=== PATIENT | female | born 1940 | race Caucasian/White ===

== ENCOUNTER 2017-09-17 16:06 | Emergency (ER) | payer MEDICARE, OTHER ==
[~2017-09-17] VITALS: Ht 170.2 cm; Wt 68.0 kg
[~2017-09-17 16:06] MED LIST: OLME20TA19 PO
[2017-09-17 16:35] VITALS: BP 129/94
[2017-09-17] MEDS ORDERED: IPRATROPIUM BROM 0.5 MG/2.5ML INH SOL NEB ONE (18:00)
[2017-09-17] MEDS ORDERED: KETOROLAC TROMETH 30 MG/ML 1ML VIAL IM ONE (18:00)
[2017-09-17] MEDS ORDERED: ALBUTEROL SULF 2.5 MG/0.5ML(0.5%) NEB SOLN NEB ONE (18:00)
== END 2017-09-17 18:30 | disposition home or self-care (01) ==
LOC: ER 16:15
DX: S40.011A Contusion of right shoulder, initial encounter (principal); E11.9 Type 2 diabetes mellitus without complications; F17.210 Nicotine dependence, cigarettes, uncomplicated; I10 Essential (primary) hypertension; Z88.2 Allergy status to sulfonamides; Z79.899 Other long term (current) drug therapy; Z90.49 Acquired absence of other specified parts of digestive tract; Z90.710 Acquired absence of both cervix and uterus; W18.39XA Other fall on same level, initial encounter; Y93.89 Activity, other specified; Y92.89 Other specified places as the place of occurrence of the external cause; Y99.8 Other external cause status
CPT/HCPCS: 73030; 94640; 96372; 99284; J1885

== ENCOUNTER 2017-09-25 00:01 | Emergency (ER) | payer MEDICARE, OTHER ==
[~2017-09-25] VITALS: Ht 170.2 cm; Wt 70.3 kg
[2017-09-25 01:15] LABS: Basophils # (auto) 0.1 uL; Eosinophils # (auto) 0.5 uL; Eosinophils % (auto) 8.2 % (0.0-7.0); Hematocrit 40.4 % (36.0-46.0); Hemoglobin 13.9 g/dL (12.2-16.2); Lymphocytes # (auto) 1.9 uL; Lymphocytes % (auto) 35.1 % (10.0-50.0); Mean Corpuscular Hemoglobin 31.1 pg (28.0-32.0); Mean Corpuscular Hgb Conc. 34.4 g/dL (32.0-36.0); Mean Corpuscular Volume 90.6 fL (80.0-100.0); Monocytes # (auto) 0.5 uL; Monocytes % (auto) 8.9 % (0.0-12.0); Neutrophils # (auto) 2.6 uL; Neutrophils % (auto) 46.8 % (37.0-80.0); Platelet Count (auto) 219 10^3/uL (140-450); Red Blood Cells 4.46 10^6/uL (4.0-5.20); Red Cell Distribution Width 13.5 % (11.8-14.3); White Blood Cell 5.5 10^3/uL (4.4-10.8)
[2017-09-25 01:22] LABS: INR 1.07 (0.9-1.15); Partial Thromboplastin Time 28.2 sec (23.78-33.04); Prothrombin Time 11.4 sec (9.27-12.13)
[2017-09-25 01:30] LABS: Alanine Aminotransferase 33 U/L (13-56); Albumin 3.4 g/dL (3.4-5.0); Anion Gap 8 (5-15); Aspartate Aminotransferase 25 U/L (15-37); BUN/Creatinine Ratio 11.9; Blood Urea Nitrogen 7 mg/dL (7-18); Calcium 7.8 mg/dL (8.5-10.1); Carbon Dioxide 24 mmol/L (21-32); Chloride 96 mmol/L (98-107); GFR African American 128 mL/min; GFR Non-African American 106 mL/min; Glucose 109 mg/dL (74-106); Magnesium 1.9 mg/dL (1.6-2.6); Potassium 4.1 mmol/L (3.5-5.1); Sodium 128 mmol/L (136-145)
[2017-09-25 01:34] LABS: Alkaline Phosphatase 82 U/L (45-117); Bilirubin, Total 0.4 mg/dL (0.2-1.0); Total Protein 6.6 g/dL (6.4-8.2)
[2017-09-25] MEDS ORDERED: ALPRAZolam 0.5 MG TAB PO ONE (03:00)
[2017-09-25] MEDS ORDERED: ALBUTEROL SULF 2.5 MG/0.5ML(0.5%) NEB SOLN NEB ONE ×3 (06:15→09:00)
[2017-09-25] MEDS ORDERED: IPRATROPIUM BROM 0.5 MG/2.5ML INH SOL NEB ONE ×3 (06:15→09:00)
[2017-09-25] MEDS ORDERED: SODIUM CHLORIDE 0.9% 1,000 ML IV ONE (07:14)
[2017-09-25] MEDS ORDERED: FUROSEMIDE 40 MG/4 ML VIAL IV ONE (07:15)
[2017-09-25] MEDS ORDERED: SPIRONOLACTONE 25 MG TAB PO ONE (07:15)
[2017-09-25] MEDS ORDERED: PROMETHAZINE W/CODEINE 5 ML ORAL SYRUP PO ONE (09:00)
[2017-09-25 09:55] VITALS: BP 128/59
== END 2017-09-25 10:01 | disposition home or self-care (01) ==
LOC: ER 00:02
DX: J44.1 Chronic obstructive pulmonary disease with (acute) exacerbation (principal); R60.9 Edema, unspecified; E87.1 Hypo-osmolality and hyponatremia; M25.572 Pain in left ankle and joints of left foot; M25.571 Pain in right ankle and joints of right foot; E11.9 Type 2 diabetes mellitus without complications; F17.210 Nicotine dependence, cigarettes, uncomplicated; I10 Essential (primary) hypertension; Z90.710 Acquired absence of both cervix and uterus; Z90.49 Acquired absence of other specified parts of digestive tract; Z88.2 Allergy status to sulfonamides
CPT/HCPCS: 36415; 71045; 80053; 83735; 83880; 84484; 85025; 85610; 85730; 93005; 94640; 96374; 99285; J1940; J7030

== ENCOUNTER 2019-07-31 10:33 | Inpatient (IN) | payer MEDICARE ==
[~2019-07-31] VITALS: Ht 170.2 cm; Wt 69.1 kg
[~2019-07-31 10:33] MED LIST changes: +BUDE0.253 IN; +FORMPOW9 IN; +LOSA25TA38 PO; -OLME20TA19 PO; +OLME20TA53 PO; +TRIATAB3 PO; +[UNRECOGNIZED DRUG - CODE] IN
[2019-07-31 11:22] LABS: Basophils # (auto) 0.1 10 ^3/uL (0-0.2); Basophils % (auto) 0.3 % (0.0-2.0); Eosinophils # (auto) 0 10 ^3/uL (0-0.8); Eosinophils % (auto) 0.1 % (0.0-7.0); Hematocrit 52.1 % (36.0-46.0); Hemoglobin 17.3 g/dL (12.2-16.2); Lymphocytes # (auto) 1.4 10 ^3/uL (0.4-5.4); Mean Corpuscular Hgb Conc. 33.2 g/dL (32.0-36.0); Mean Corpuscular Volume 90.3 fL (80.0-100.0); Monocytes # (auto) 1.3 10 ^3/uL (0-1.3); Monocytes % (auto) 5.3 % (0.0-12.0); Neutrophils # (auto) 20.8 10 ^3/uL (1.6-8.6); Neutrophils % (auto) 88.3 % (37.0-80.0); Platelet Count (auto) 364 10^3/uL (140-450); Red Blood Cells 5.76 10^6/uL (4.0-5.20); Red Cell Distribution Width 13.7 % (11.8-14.3); White Blood Cell 23.6 10^3/uL (4.4-10.8)
[2019-07-31 11:37] LABS: Anion Gap 12 (5-15); Blood Urea Nitrogen 13 mg/dL (7-18); Calcium 9.4 mg/dL (8.5-10.1); Carbon Dioxide 24 mmol/L (21-32); Chloride 88 mmol/L (98-107); Glucose 177 mg/dL (74-106); Lipase 39 U/L (73-393); Magnesium 2.3 mg/dL (1.6-2.6); Potassium 4.2 mmol/L (3.5-5.1); Sodium 124 mmol/L (136-145)
[2019-07-31 11:42] LABS: Alanine Aminotransferase 20 U/L (13-56); Alkaline Phosphatase 86 U/L (45-117); Aspartate Aminotransferase 24 U/L (15-37); Bilirubin, Total 1.5 mg/dL (0.2-1.0); GFR African American 75 mL/min; GFR Non-African American 62 mL/min; Total Protein 8.2 g/dL (6.4-8.2)
[2019-07-31] MEDS ORDERED: SODIUM CHLORIDE 0.9% 1,000 ML IV ONE (11:45)
[2019-07-31] MEDS ORDERED: ONDANSETRON HCL 4 MG/2 ML VIAL IV ONE (11:45)
[2019-07-31 12:29] LABS: INR 1.11 (0.9-1.15); Partial Thromboplastin Time 27.8 sec (23.64-32.05)
[2019-07-31] MEDS ORDERED: metroNIDAZOLE 500MG/100ML 100 ML IV ONE (13:15)
[2019-07-31] MEDS ORDERED: DEXTROSE (50%) 50ML SYRG IV PRN (13:45)
[2019-07-31] MEDS ORDERED: NITROGLYCERIN 0.4 MG SL TAB SL PRN (13:45)
[2019-07-31] MEDS ORDERED: PIPERACILLIN-TAZOB 3.375GM 100 ML IV ONE (13:45)
[2019-07-31] MEDS ORDERED: MORPHINE SULF INJ 2 MG/ML SYRINGE 1ML IV PRN ×2 (13:45)
[2019-07-31] MEDS ORDERED: ALBUTEROL SULF 2.5 MG/0.5ML(0.5%) NEB SOLN NEB PRN (13:45)
[2019-07-31] MEDS ORDERED: BENZOCAINE (DENTAL)20% 1 SPR SPRAY MT ONE ×2 (14:00→14:15)
[2019-07-31] MEDS: FAMOTIDINE (10MG/ML) 2ML VL IV SCH (14:06)
[2019-07-31] MEDS: SODIUM CHLORIDE 0.9% 1,000 ML IV SCH (14:32)
[2019-07-31 15:07] LABS: CRP High Sensitivity 1.12 mg/dL (< 0.3)
[2019-07-31] MEDS ORDERED: GASTROGRAFIN 120 ML SOL ONE (16:23)
[2019-07-31] MEDS: CLINDAMYCIN 600MG IV 50 ML IV SCH ×2 (16:31→20:12)
[2019-07-31 17:28] LABS: Urine Bacteria FEW /hpf (None Seen); Urine Blood Negative /uL (Negative); Urine Hyaline Cast FEW /lpf (0 - 2); Urine Specific Gravity 1.011 (1.001-1.035); Urine WBC 2 /hpf (0 - 5)
[2019-07-31 17:50] LABS: Alcohol, Urine < 3.0 mg/dL (0-5); Amphetamine Screen, Urine NEGATIVE (NEGATIVE); Barbiturate Scree,Urine NEGATIVE (NEGATIVE); Benzodiazephine Screen, Urine NEGATIVE (NEGATIVE); Cannabinoid Screen, Urine NEGATIVE (NEGATIVE); Cocaine Screen, Urine NEGATIVE (NEGATIVE); Opiate Scree,Urine NEGATIVE (NEGATIVE); Phencyclidine Screen, Urine NEGATIVE (NEGATIVE)
[2019-07-31] MEDS: ACCU-CHEK COMFORT CURVE STRIP VI SCH (18:00)
[2019-07-31] MEDS: PIPERACILLIN-TAZOB 3.375GM 100 ML IV SCH ×2 (19:01→23:12)
--- NOTE | 2019-07-31 19:04 | NUR ---
UNABLE TO PERFORM MED REC UPON PERFORMING ADMISSION, PT UNABLE TO STATE MEDICATIONS SHE TAKES AT HOME AND PT HAS NO LIST WITH HER. ASKED IF SHE COULD HAVE FAMILY CALL IN WITH MED LIST. PT STATED WILL HAVE FAMILY CALL. INFORMED PRIMARY RN.
[2019-07-31] MEDS: ALBUTEROL SULF 2.5 MG/0.5ML(0.5%) NEB SOLN NEB SCH (19:06)
[2019-07-31] MEDS: IPRATROPIUM BROM 0.5 MG/2.5ML INH SOL NEB SCH (19:06)
[2019-07-31] MEDS: ONDANSETRON HCL 4 MG/2 ML VIAL IV PRN (20:12)
[2019-07-31 20:40] VITALS: BP 172/77
--- NOTE | 2019-07-31 20:41 | NUR ---
PATIENT BP 172/77 HR 101 PATIENT IS NPO FOR PARTIAL SBO, REGULARLY TAKE BENICAR 20MG DAILY, AND LOSARTAN 25MG PO DAILY. PATIENT WAS GIVEN ZOFRAN BUT STILL STATES SHE IS NAUSEATED. PAGED HOSPITALIST FOR ORDERS.
[2019-07-31 22:00] VITALS: BP 167/75
[2019-07-31 22:19] VITALS: BP 172/77
[2019-07-31] MEDS: hydrALAZINE HCL 20 MG/ML VL IV PRN (23:11)
[2019-07-31] MEDS: MORPHINE SULF INJ 2 MG/ML SYRINGE 1ML IV PRN (23:58)
[2019-08-01] MEDS: FAMOTIDINE (10MG/ML) 2ML VL IV SCH ×2 (00:09→14:46)
[2019-08-01] MEDS: ONDANSETRON HCL 4 MG/2 ML VIAL IV PRN ×2 (00:10→03:50)
[2019-08-01 00:32] VITALS: BP 132/74
[2019-08-01] MEDS: IPRATROPIUM BROM 0.5 MG/2.5ML INH SOL NEB SCH ×4 (00:33→18:29)
[2019-08-01] MEDS: ALBUTEROL SULF 2.5 MG/0.5ML(0.5%) NEB SOLN NEB SCH ×4 (00:33→18:29)
[2019-08-01] MEDS: MORPHINE SULF INJ 2 MG/ML SYRINGE 1ML IV PRN (03:50)
[2019-08-01 05:00] VITALS: BP 113/65
[2019-08-01] MEDS: CLINDAMYCIN 600MG IV 50 ML IV SCH (05:31)
[2019-08-01] MEDS: SODIUM CHLORIDE 0.9% 1,000 ML IV SCH ×3 (05:31→21:40)
[2019-08-01] MEDS: PIPERACILLIN-TAZOB 3.375GM 100 ML IV SCH ×3 (05:31→18:35)
[2019-08-01] MEDS ORDERED: hydrALAZINE HCL 20 MG/ML VL IV PRN (06:00)
--- NOTE | 2019-08-01 06:01 | NUR ---
BS THIS AM 211 AND PATIENT CURRENTLY NPO WITH NS [phone].
[2019-08-01] MEDS: ACCU-CHEK COMFORT CURVE STRIP VI SCH ×3 (06:11→12:13)
[2019-08-01 06:36] LABS: Basophils # (auto) 0 10 ^3/uL (0-0.2); Basophils % (auto) 0.1 % (0.0-2.0); Eosinophils # (auto) 0 10 ^3/uL (0-0.8); Hematocrit 48.8 % (36.0-46.0); Hemoglobin 16.3 g/dL (12.2-16.2); Lymphocytes # (auto) 0.8 10 ^3/uL (0.4-5.4); Mean Corpuscular Hemoglobin 30.5 pg (28.0-32.0); Mean Corpuscular Hgb Conc. 33.4 g/dL (32.0-36.0); Mean Corpuscular Volume 91.1 fL (80.0-100.0); Monocytes # (auto) 0.9 10 ^3/uL (0-1.3); Monocytes % (auto) 5.4 % (0.0-12.0); Neutrophils # (auto) 15.1 10 ^3/uL (1.6-8.6); Neutrophils % (auto) 89.5 % (37.0-80.0); Nucleated Red Blood Cells % 0.1 %; Platelet Count (auto) 322 10^3/uL (140-450); Red Blood Cells 5.35 10^6/uL (4.0-5.20); Red Cell Distribution Width 14.2 % (11.8-14.3); White Blood Cell 16.8 10^3/uL (4.4-10.8)
[2019-08-01 06:57] LABS: Albumin 3.6 g/dL (3.4-5.0); BUN/Creatinine Ratio 21.6; Calcium 8.9 mg/dL (8.5-10.1); Potassium 3.4 mmol/L (3.5-5.1)
[2019-08-01 07:00] LABS: Bilirubin, Total 1.1 mg/dL (0.2-1.0); Total Protein 7.1 g/dL (6.4-8.2)
--- NOTE | 2019-08-01 07:50 | NUR ---
Small bowel series complete patient connected to suction per md orders. Patient now has NG out put 900 dark green canister changed.
[2019-08-01 09:00] VITALS: BP 119/73
--- NOTE | 2019-08-01 12:10 | NUR ---
PATIENT HAS 1500 NG TOTAL OUT PUT AT THIS TIME DOCTOR ANNE INFORMED. MD ALSO INFORMED OF PATIENT 3.4 POTASSIUM. NEW ORDERS RECEIVED SEE EMR FOR MD ORDERS.
[2019-08-01] MEDS ORDERED: VANCOMYCIN PER PHARMACY 0 MG IV SCH (12:15)
[2019-08-01] MEDS ORDERED: VANCOMYCIN 1GM/250ML 250 ML IV ONE (12:15)
[2019-08-01 12:53] VITALS: BP 118/60
[2019-08-01 17:00] VITALS: BP 123/74
--- NOTE | 2019-08-01 17:10 | NUR ---
at Bedside Doctor Yamil at bedside. informed of NG suction total output today 2100. Per Yamil he will reassess patient tomorrow to see if she will need surgical intervention.
[2019-08-01] MEDS: POTASSIUM CHL 20MEQ/100ML 100 ML IV SCH ×2 (17:48→21:40)
--- NOTE | 2019-08-01 19:00 | NUR ---
TOTAL NG OUT PUT WAS 2450 OF DARK GREEN COLOR.
[2019-08-01 22:00] VITALS: BP 140/70
[2019-08-02] MEDS: ALBUTEROL SULF 2.5 MG/0.5ML(0.5%) NEB SOLN NEB SCH ×4 (00:32→18:37)
[2019-08-02] MEDS: IPRATROPIUM BROM 0.5 MG/2.5ML INH SOL NEB SCH ×4 (00:32→18:37)
[2019-08-02] MEDS: PIPERACILLIN-TAZOB 3.375GM 100 ML IV SCH ×5 (00:43→23:46)
[2019-08-02 05:00] VITALS: BP 145/71
[2019-08-02] MEDS: FAMOTIDINE (10MG/ML) 2ML VL IV SCH ×3 (06:31→23:46)
[2019-08-02] MEDS: SODIUM CHLORIDE 0.9% 1,000 ML IV SCH ×2 (06:32→15:38)
[2019-08-02 06:53] LABS: Basophils # (auto) 0 10 ^3/uL (0-0.2); Basophils % (auto) 0.1 % (0.0-2.0); Eosinophils # (auto) 0 10 ^3/uL (0-0.8); Hematocrit 46.5 % (36.0-46.0); Hemoglobin 15.7 g/dL (12.2-16.2); Lymphocytes # (auto) 1.7 10 ^3/uL (0.4-5.4); Lymphocytes % (auto) 10.1 % (10.0-50.0); Mean Corpuscular Hemoglobin 30.7 pg (28.0-32.0); Mean Corpuscular Hgb Conc. 33.8 g/dL (32.0-36.0); Mean Corpuscular Volume 90.9 fL (80.0-100.0); Monocytes # (auto) 1.2 10 ^3/uL (0-1.3); Monocytes % (auto) 7.2 % (0.0-12.0); Neutrophils # (auto) 13.6 10 ^3/uL (1.6-8.6); Neutrophils % (auto) 82.6 % (37.0-80.0); Nucleated Red Blood Cells % 0.1 %; Platelet Count (auto) 299 10^3/uL (140-450); Red Blood Cells 5.11 10^6/uL (4.0-5.20); White Blood Cell 16.5 10^3/uL (4.4-10.8)
[2019-08-02 07:09] LABS: Potassium 3.6 mmol/L (3.5-5.1)
[2019-08-02 07:11] LABS: BUN/Creatinine Ratio 32.5; Calcium 8.7 mg/dL (8.5-10.1)
[2019-08-02 07:13] LABS: Albumin 3.2 g/dL (3.4-5.0); Bilirubin, Total 0.9 mg/dL (0.2-1.0); Total Protein 6.8 g/dL (6.4-8.2)
--- NOTE | 2019-08-02 08:45 | NUR ---
Banda rounding. New orders received see emr for orders.
[2019-08-02 09:00] VITALS: BP 149/71
[2019-08-02] MEDS: SOD CHL 0.9%/ KCL 40MEQ 1,000 ML IV SCH ×2 (10:31→18:54)
[2019-08-02] MEDS: VANCOMYCIN 1GM/250ML 250 ML IV SCH (12:00)
--- NOTE | 2019-08-02 12:35 | NUR ---
DOCTOR GASCA AT BEDSIDE, PER MD HE WILL REASSESS PATIENT AGAIN TOMORROW FOR POSSIBLE SURGERY.
[2019-08-02 13:00] VITALS: BP 149/55
--- NOTE | 2019-08-02 15:04 | NUR ---
Family call Received call from Saskia patient daughter per Saskia patient is seen by [facility] [phone] nurses name is Coral. Per saskia "my mother has had a lot of abdominal surgeries when she was younger and has abdominal issue since 2009". Per daughter saskia she would like if doctor Yamil could call her tomorrow to discuss poc [phone].
[2019-08-02 17:00] VITALS: BP 160/98
--- NOTE | 2019-08-02 18:35 | NUR ---
NG suction out put this shift 450ml dark green in color.
[2019-08-02] MEDS: hydrALAZINE HCL 20 MG/ML VL IV PRN (18:51)
--- NOTE | 2019-08-02 19:10 | NUR ---
PATIENT BLOOD PRESSURE WAS 159/73 BLOOD PRESSURE PRN GIVEN (SEE EMAR) BLOOD PRESSURE REASSESSED 132/64
--- NOTE | 2019-08-02 19:30 | NUR ---
Opening Shift Note Assumed care of patient, awake and alert. No S/S of distress/SOB or pain. Instructed on POC and to callfor assist PRN, will continue to monitor for changes Q1hr and PRN. Fall and safety precautions in place. Call light within reach. NGT in right nare, marked at 58cm at nare, and connected to LIS. Suction canister changed, will continue to monitor gastric output.
[2019-08-02 22:00] VITALS: BP 130/68
[2019-08-03] MEDS: ALBUTEROL SULF 2.5 MG/0.5ML(0.5%) NEB SOLN NEB SCH ×4 (00:17→19:08)
[2019-08-03] MEDS: IPRATROPIUM BROM 0.5 MG/2.5ML INH SOL NEB SCH ×4 (00:17→19:08)
[2019-08-03] MEDS: SODIUM CHLORIDE 0.9% 1,000 ML IV SCH ×3 (01:34→21:34)
[2019-08-03 04:59] VITALS: BP 153/72
[2019-08-03] MEDS: PIPERACILLIN-TAZOB 3.375GM 100 ML IV SCH ×4 (05:31→23:22)
[2019-08-03] MEDS: SOD CHL 0.9%/ KCL 40MEQ 1,000 ML IV SCH ×3 (05:31→23:23)
--- NOTE | 2019-08-03 06:00 | NUR ---
NG DRAINAGE Measured 200ml of drainage in suction canister from NG tube (see intake and output). Canister marked, will inform day shift RN to continue monitoring output
[2019-08-03 06:26] LABS: Basophils # (auto) 0 10 ^3/uL (0-0.2); Basophils % (auto) 0.2 % (0.0-2.0); Eosinophils # (auto) 0 10 ^3/uL (0-0.8); Eosinophils % (auto) 0.1 % (0.0-7.0); Hematocrit 44.5 % (36.0-46.0); Hemoglobin 14.7 g/dL (12.2-16.2); Lymphocytes # (auto) 1.1 10 ^3/uL (0.4-5.4); Lymphocytes % (auto) 8.4 % (10.0-50.0); Mean Corpuscular Hemoglobin 30.3 pg (28.0-32.0); Mean Corpuscular Hgb Conc. 33.1 g/dL (32.0-36.0); Mean Corpuscular Volume 91.6 fL (80.0-100.0); Monocytes # (auto) 1.1 10 ^3/uL (0-1.3); Monocytes % (auto) 8.3 % (0.0-12.0); Neutrophils # (auto) 10.5 10 ^3/uL (1.6-8.6); Platelet Count (auto) 218 10^3/uL (140-450); Red Blood Cells 4.85 10^6/uL (4.0-5.20); White Blood Cell 12.7 10^3/uL (4.4-10.8)
[2019-08-03 06:53] LABS: Albumin 3.2 g/dL (3.4-5.0); Calcium 8.4 mg/dL (8.5-10.1); Potassium 4.4 mmol/L (3.5-5.1)
[2019-08-03 06:58] LABS: BUN/Creatinine Ratio 33.3; Bilirubin, Total 1.1 mg/dL (0.2-1.0); Total Protein 6.4 g/dL (6.4-8.2)
[2019-08-03 09:00] VITALS: BP 160/73
[2019-08-03] MEDS: VANCOMYCIN 1GM/250ML 250 ML IV SCH (11:43)
[2019-08-03 13:00] VITALS: BP 146/75
[2019-08-03] MEDS ORDERED: METOPROLOL TARTRATE 1MG/1ML-5ML VIAL IV ONE ×2 (13:00→13:15)
--- NOTE | 2019-08-03 13:04 | NUR ---
RECEIEVED CALL FROM TELE MONITORS, THEY REPORT PT IS TACHYCARDIC HR 140'S AND PT IS HAVING PVC'S. TOOK STAT ECG. ECG READS SUPRAVENTRICULAR TACHYCARDIA WITH MULTIPLE PVC'S, HR 147. VITALS: RR 18, HR 150, 02 96 2 L NC, BP 150/99, 98.6.PT REPORTS NO SYMPTOMS, NO SOB OR DIAPHORESIS NOTED. SHOWED DR PURDY ECG AND REPORTED HR. AWARE, NEW ORDERS FOR METOPROLOL 5 MG AND 500 ML BOLUS.
[2019-08-03] MEDS ORDERED: METOPROLOL TARTRATE 1MG/1ML-5ML VIAL IV PRN (13:15)
[2019-08-03] MEDS ORDERED: SODIUM CHLORIDE 0.9% 500 ML IV ONE ×2 (13:15)
[2019-08-03] MEDS: FAMOTIDINE (10MG/ML) 2ML VL IV SCH ×2 (13:41→23:23)
--- NOTE | 2019-08-03 14:00 | NUR ---
Pt request-Dr. Lobo to call dtr tomorrow. Patient's daughter wanted Dr. Lobo to call her for an update. MD was talking to the patient and she said she didn't want her daughter called. She said her daughter has multiple personalities and would get worked up over it and worry. She said she would think about it and that the doctor could call her daughter tomorrow after the results of the gastrografin were back and he had more information and a plan for moving forward. Dr. Lobo suggested the patient talk to her daughter about the situation and then he could talk with her tomorrow if she has any questions.
--- NOTE | 2019-08-03 15:01 | NUR ---
Nutrition Assessment Notes Please refer to link for full assessment notes. Est Energy needs: 6719-9996 kcals (20-23 kcal/kgBW) Est Protein needs: 64-71 gms/day (1.0-1.1 gm/kgBW) Will continue to monitor and reassess prn. Addendum: 08/03/19 at [address] Amended: Links added.
--- NOTE | 2019-08-03 15:17 | NUR ---
GASTRO WITH SMALL BOWEL FOLLOW THROUGH PATIENT TAKEN DOWN FOR GASTROGRAFIN SMALL BOWEL FOLLOW THROUGH. NO BM NOTED YET.
[2019-08-03] MEDS ORDERED: GASTROGRAFIN 120 ML SOL ONE (15:18)
[2019-08-03 17:00] VITALS: BP 143/75
--- NOTE | 2019-08-03 19:30 | NUR ---
Opening Shift Note Assumed care of patient, awake and alert. No S/S of distress/SOB or pain. Instructed on POC and to callfor assist PRN, will continue to monitor for changes Q1hr and PRN. Fall and safety precautions in place. Call light within reach. NGT in right nare, marked at 58cm at nare, and not connected to LIS at this time. Per day shift RN report, radiology to continue small bowel follow through. Attempted to call radiology department, but no answer. Will try again later. Suction canister changed. Will continue to monitor
[2019-08-03] MEDS: ONDANSETRON HCL 4 MG/2 ML VIAL IV PRN (19:42)
--- NOTE | 2019-08-03 19:45 | NUR ---
RADIOLOGY Attempted to call radiology department to continue with small bowel follow through, but no answer. Patient still not connected to LIS. Will try again later.
--- NOTE | 2019-08-03 20:00 | NUR ---
RADIOLOGY Attempted to call radiology department to continue with small bowel follow through, but no answer. Patient still not connected to LIS. Will try again later.
--- NOTE | 2019-08-03 20:15 | NUR ---
RADIOLOGY Attempted to call radiology department to continue with small bowel follow through, but no answer. Patient still not connected to LIS. Will try again later.
[2019-08-03 20:24] VITALS: BP 143/75
--- NOTE | 2019-08-03 20:30 | NUR ---
RADIOLOGY Attempted to call radiology department to continue with small bowel follow through, but no answer. Patient still not connected to LIS. Will try again later.
--- NOTE | 2019-08-03 20:45 | NUR ---
RADIOLOGY Attempted to call radiology department to continue with small bowel follow through, but no answer. Patient still not connected to LIS. Will try again later.
--- NOTE | 2019-08-03 21:00 | NUR ---
RADIOLOGY Attempted to call radiology department to continue with small bowel follow through, but no answer. Patient still not connected to LIS. Will try again later.
--- NOTE | 2019-08-03 21:15 | NUR ---
RADIOLOGY Attempted to call radiology department to continue with small bowel follow through, but no answer. Patient still not connected to LIS. Will try again later.
--- NOTE | 2019-08-03 21:40 | NUR ---
RADIOLOGY Spoke with sheila mendez, informed him patient has been disconnected from LIS because per day shift RN report, small bowel xray has not been completed. contract technical writer stated xray was completed and ok to connect patient to LIS. contract technical writer also stated to put order for KUB tomorrow 08/03 at 0800. Will confirm with incubator operator
[2019-08-03] MEDS: LABETALOL HCL 5 MG/ML 4ML SYRINGE IV PRN (21:50)
[2019-08-03 22:00] VITALS: BP 158/82
--- NOTE | 2019-08-03 22:05 | NUR ---
DIGITAL LIBRARIAN Confirmed with insulation cupola charger regarding veterinary technician's recommendation for KUB. Per insulation cupola charger, ok to put in order per protocol. Will input
--- NOTE | 2019-08-03 23:00 | NUR ---
NG DRAINAGE Patient put out 1000ml of green gastric drainage via NGT (see intake and output). Canister changed. Will continue to monitor NG drainage
[2019-08-03] MEDS: hydrALAZINE HCL 20 MG/ML VL IV PRN (23:22)
[2019-08-04 00:22] VITALS: BP 147/64
[2019-08-04] MEDS: IPRATROPIUM BROM 0.5 MG/2.5ML INH SOL NEB SCH ×5 (00:54→23:51)
[2019-08-04] MEDS: ALBUTEROL SULF 2.5 MG/0.5ML(0.5%) NEB SOLN NEB SCH ×5 (00:54→23:51)
--- NOTE | 2019-08-04 03:00 | NUR ---
NG DRAINAGE Patient put out 1000ml of green gastric drainage via NGT (see intake and output). Canister changed. Will continue to monitor NG drainage
[2019-08-04 05:00] VITALS: BP 129/55
[2019-08-04] MEDS: PIPERACILLIN-TAZOB 3.375GM 100 ML IV SCH ×4 (05:22→23:41)
--- NOTE | 2019-08-04 06:00 | NUR ---
NG DRAINAGE Patient put out 400ml of green gastric drainage via NGT (see intake and output). Canister marked at 400ml line. Will inform day shift RN
[2019-08-04 06:47] LABS: Basophils # (auto) 0 10 ^3/uL (0-0.2); Basophils % (auto) 0.1 % (0.0-2.0); Eosinophils # (auto) 0 10 ^3/uL (0-0.8); Eosinophils % (auto) 0.2 % (0.0-7.0); Hematocrit 47.4 % (36.0-46.0); Hemoglobin 15.8 g/dL (12.2-16.2); Lymphocytes # (auto) 1.3 10 ^3/uL (0.4-5.4); Lymphocytes % (auto) 10.6 % (10.0-50.0); Mean Corpuscular Hemoglobin 30.7 pg (28.0-32.0); Mean Corpuscular Hgb Conc. 33.3 g/dL (32.0-36.0); Mean Corpuscular Volume 92.2 fL (80.0-100.0); Monocytes # (auto) 1.3 10 ^3/uL (0-1.3); Monocytes % (auto) 10.5 % (0.0-12.0); Neutrophils # (auto) 9.7 10 ^3/uL (1.6-8.6); Neutrophils % (auto) 78.6 % (37.0-80.0); Platelet Count (auto) 238 10^3/uL (140-450); Red Blood Cells 5.14 10^6/uL (4.0-5.20); Red Cell Distribution Width 14.2 % (11.8-14.3); White Blood Cell 12.4 10^3/uL (4.4-10.8)
[2019-08-04 07:03] LABS: Potassium 4.5 mmol/L (3.5-5.1)
[2019-08-04 07:11] LABS: Albumin 3.3 g/dL (3.4-5.0); BUN/Creatinine Ratio 28.3; Bilirubin, Total 0.9 mg/dL (0.2-1.0); Calcium 9.2 mg/dL (8.5-10.1)
--- NOTE | 2019-08-04 07:30 | NUR ---
ROUNDS PT RESTING IN BED AWAKE A&O WITH NO C/O PAIN. NG TUBE TO RIGHT NARE ON LIS, DRAINING DARK GREEN LIQUID. BED IN LOW POSITION, CALL LIGHT IN REACH, NO CURRENT S/S OF DISTRESS OR REQUESTS. WILL CONTINUE TO MONITOR.
[2019-08-04] MEDS: SODIUM CHLORIDE 0.9% 1,000 ML IV SCH ×2 (07:34→17:34)
[2019-08-04 09:00] VITALS: BP 138/74
--- NOTE | 2019-08-04 10:39 | NUR ---
DR Darron GASCA CALLED REQUESTED UPDATE ON SMALL BOWEL REPORT. REPORT NOT AVAILABLE, WILL NOTIFY RADIOLOGY TO SEE IF REPORT CAN BE POPULATED
--- NOTE | 2019-08-04 10:46 | NUR ---
Pt sleeping and unable to answer phone for IM. Contacted daughter Saskia and explained IM process. saskia verbalized understanding of information.
[2019-08-04] MEDS: SOD CHL 0.9%/ KCL 40MEQ 1,000 ML IV SCH ×2 (11:00→22:26)
--- NOTE | 2019-08-04 11:57 | NUR ---
SUCTION CANISTER FULL AND REPLACED 500 ML DARK GREEN LIQUID OUT SINCE 0600
[2019-08-04] MEDS: VANCOMYCIN 1GM/250ML 250 ML IV SCH (12:31)
[2019-08-04] MEDS: FAMOTIDINE (10MG/ML) 2ML VL IV SCH ×2 (12:31→23:41)
[2019-08-04 13:00] VITALS: BP 130/54
--- NOTE | 2019-08-04 16:56 | NUR ---
CONSENTS SIGNED AND PLACED IN CHART
[2019-08-04 17:00] VITALS: BP 148/82
[2019-08-04 22:00] VITALS: BP 148/79
[2019-08-05] VITALS (44 sets, daily range): BP systolic 75–169; BP diastolic 29–95
[2019-08-05] MEDS: PIPERACILLIN-TAZOB 3.375GM 100 ML IV SCH ×3 (05:28→18:26)
--- NOTE | 2019-08-05 06:00 | NUR ---
CHG Patient cleaned with CHG wipes, full linen change done, and gown changed. Patient repositioned in bed for comfort, tolerated well. Will continue to monitor
--- NOTE | 2019-08-05 06:00 | NUR ---
TEMP Patient's current temp; 99.7F oral. Cooling measures applied. Will recheck approximately 1 hour
[2019-08-05 06:19] LABS: Basophils # (auto) 0.1 10 ^3/uL (0-0.2); Basophils % (auto) 0.5 % (0.0-2.0); Eosinophils # (auto) 0.2 10 ^3/uL (0-0.8); Eosinophils % (auto) 1.4 % (0.0-7.0); Hematocrit 46.4 % (36.0-46.0); Hemoglobin 15.4 g/dL (12.2-16.2); Lymphocytes # (auto) 2.1 10 ^3/uL (0.4-5.4); Mean Corpuscular Hemoglobin 31.1 pg (28.0-32.0); Mean Corpuscular Hgb Conc. 33.3 g/dL (32.0-36.0); Mean Corpuscular Volume 93.3 fL (80.0-100.0); Monocytes # (auto) 1.1 10 ^3/uL (0-1.3); Monocytes % (auto) 8.8 % (0.0-12.0); Neutrophils # (auto) 9.5 10 ^3/uL (1.6-8.6); Neutrophils % (auto) 73.3 % (37.0-80.0); Platelet Count (auto) 226 10^3/uL (140-450); Red Blood Cells 4.97 10^6/uL (4.0-5.20); Red Cell Distribution Width 14.1 % (11.8-14.3); White Blood Cell 12.9 10^3/uL (4.4-10.8)
[2019-08-05 06:38] LABS: Albumin 3.2 g/dL (3.4-5.0); Calcium 8.8 mg/dL (8.5-10.1); Potassium 4.6 mmol/L (3.5-5.1)
[2019-08-05 06:41] LABS: BUN/Creatinine Ratio 31.3
[2019-08-05] MEDS: SOD CHL 0.9%/ KCL 40MEQ 1,000 ML IV SCH ×2 (07:00→16:04)
[2019-08-05] MEDS: ALBUTEROL SULF 2.5 MG/0.5ML(0.5%) NEB SOLN NEB SCH ×3 (07:22→22:00)
[2019-08-05] MEDS: IPRATROPIUM BROM 0.5 MG/2.5ML INH SOL NEB SCH ×3 (07:22→22:00)
--- NOTE | 2019-08-05 07:35 | NUR ---
Opening shift note: Assumed care of patient from NOC RN Griselda. Patient is AOx4, so signs and symptoms of distress, shortness of breath or pain noted at this time. Bed is in lowest locked position, side rails up x2, and call light within reach. NG tube to right nare in place, tube marked at 58cm, it is patent and draining. Updated patient on plan of care, and patient verbalized understanding. I will continue to monitor Q1hr and PRN.
[2019-08-05] MEDS ORDERED: fentaNYL CITRATE 100 MCG/2 ML VL ONE (11:07)
[2019-08-05] MEDS ORDERED: MIDAZOLAM HCL 1MG/1ML-2 ML VIAL ONE ×2 (11:07→14:16)
[2019-08-05] MEDS ORDERED: SODIUM CHLORIDE LOCK 10 ML ONE (11:08)
[2019-08-05] MEDS ORDERED: MORPHINE SULFATE INJECTION 1 ML ONE ×2 (11:08→13:55)
[2019-08-05] MEDS ORDERED: ROCURONIUM 10MG/ML 10ML VIAL IV ONE ×2 (11:08→13:46)
[2019-08-05] MEDS ORDERED: PROPOFOL 10 MG/ML 20 ML IV ONE (11:08)
[2019-08-05] MEDS ORDERED: ONDANSETRON HCL 4 MG/2 ML VIAL ONE (11:08)
[2019-08-05] MEDS: hydrALAZINE HCL 20 MG/ML VL IV PRN (11:18)
[2019-08-05] MEDS: VANCOMYCIN 1GM/250ML 250 ML IV SCH (12:00)
--- NOTE | 2019-08-05 12:00 | NUR ---
Patient off unit: Patient taken to Pre-op. Report given to ROSA M Bundy.
--- NOTE | 2019-08-05 12:09 | NUR ---
Nutrition Followup Notes WT: 60.8 kg Pt was off the floor for procedure when rounded this am. per records pt with SBO on KUB and to have sx for same today. pt continues to be NPO Est Energy needs: 4300-1809 kcals (20-23 kcal/kgBW), Est Protein needs: 64-71 gms/day (1.0-1.1 gm/kgBW). Will continue to monitor and reassess prn. LABS: BUN 31 H, GLU 113 H, ALB 3.3 L. GI: pt had 1 BM yesterday per RN doc BS:skin score 16 mod risk PES: Problem Altered nutrition related lab values r.t current chronic medical condition aeb hyperglycemia, mild hypoalbuminemia Increased nutrient needs r.t current medical condition aeb pt`s NPO Comments 1) Continue to closely monitor pt NPO status. Consider alternate nutrition support if pt NPO > 48 hrs. 2) Gradually advance pt to oral 2gNa diet when medically feasible and as tolerated. 3) Continue current plan of care
--- NOTE | 2019-08-05 12:27 | NUR ---
Respiratory note: UNABLE TO ADMINISTER MEDNEB TX DUE TO PT BEING AT A PROCEDURE. RN AWARE.
--- NOTE | 2019-08-05 12:41 | NUR ---
patient off unit for surgery. Addendum: 08/05/19 at 1242 by KEITH GARCIA RN Amended: Links added.
[2019-08-05] MEDS ORDERED: cefTRIAXone SOD 1,000 MG VL ONE (12:52)
[2019-08-05] MEDS ORDERED: ceFAZolin 1GM VL ONE (14:06)
[2019-08-05] MEDS ORDERED: HYDROmorphone HCL 2 MG/ML VL ONE (14:16)
--- NOTE | 2019-08-05 14:46 | NUR ---
Respiratory note: Pt arrived from OR to ICU bed 104, placed on ventilator on ordered settings: AC, RR 14, VT 500, PEEP +5, FIO2 50%. Vent plugged into red outlet, alarms set and audible, pt tolerating well. ABG to follow in 30 minutes. RN at bedside. Will continue to monitor.
--- NOTE | 2019-08-05 14:46 | NUR ---
Pt with ETT 7.5 at 20cm lip secured with holister.
--- NOTE | 2019-08-05 14:50 | NUR ---
Sputum sample obtained and sent to lab.
--- NOTE | 2019-08-05 14:58 | NUR ---
patient is down for a procedure Addendum: 08/05/19 at 1459 by KEITH GARCIA RN Amended: Links added.
--- NOTE | 2019-08-05 15:00 | NUR ---
RECEIVED PT FROM OR S/P EXPLORATORY LAP LYSIS OF ADHESION RELEASE SMALL BOWEL OBSTRUCTION. PT HAS RT RADIAL ART. LINE WITH GOOD WAVE FORM. BP IN THE LOW 90'S PT STILL SEDATED FROM ANESTHESIA PT REMAINS INTUBATED AND SEDATED. NGT TO RT NARE TO LIS, DRAINING DARK GREEN BILE. PT HAS 2 PERIPHERAL IV'S BOTH BENIGN & PATENT. PT'S SKIN INTACT OTHER THAN MID ABDOMINAL INCISION. REPOSITIONED FOR COMFORT, PT RECEIVING ORAL CARE PER VAP PROTOCOL.
--- NOTE | 2019-08-05 15:36 | NUR ---
Report given to DOUBLER HELPER Kathy.
--- NOTE | 2019-08-05 15:50 | NUR ---
UPDATED PT'S DAUGHTER ELIZABETH ON PT'S CONDITION S/P SURGERY AND POC. PT'S DAUGHTER VERBALIZED UNDERSTANDING OF POC. SHE'LL CALL ON AUTOMATIC MACHINE ATTENDANT FOR FURTHER UPDATES.
[2019-08-05] MEDS ORDERED: MIDAZOLAM DRIP 50 mg/50mL 50 ML IV ONE (15:54)
[2019-08-05] MEDS: FAMOTIDINE (10MG/ML) 2ML VL IV SCH (16:13)
--- NOTE | 2019-08-05 16:18 | NUR ---
TITRATED FIO2 DOWN TO 30%, PT TOLERATING WELL MAINTAINING SPO2 100%.
--- NOTE | 2019-08-05 17:49 | NUR ---
DR. HUNTLEY IN FOR CONSULTATION, UPDATED ON PT'S HISTORY. NEW ORDERS RECEIVED FOR SEDATION. MD REVIEWING PT'S ABG'S . PLANS ON DOING CPAP TRIAL IN AM.
--- NOTE | 2019-08-05 18:15 | NUR ---
HYPOTENSION BP IN THE LOW 80'S 84/[address] HUNTLEY , I ASKED HIM IF PT COULD GET NS BOLUS. MD ORDERED 1 L NS BOLUS. FOR HYPOTENSION.
[2019-08-05] MEDS ORDERED: SODIUM CHLORIDE 0.9% 1,000 ML IV ONE (18:30)
--- NOTE | 2019-08-05 19:15 | NUR ---
REPORT GIVEN TO ZONING ENGINEER RN.
--- NOTE | 2019-08-05 20:00 | NUR ---
Opening shift note: Assumed care of patient. signs and symptoms of distress, shortness of breath or pain noted at this time. Bed is in lowest locked position, side rails up x2. NG tube to right nare in place, it is patent and draining (LOW INTERMITTENT SUCTIONING). abdominal surgical dressing is intact and no drainage or order noted. bhatia is patent, no kinks draining down the gravity, dark yellow in color. see iv spreadsheet for iv fluids, iv's are intact and were flushed.
--- NOTE | 2019-08-05 21:18 | NUR ---
HOSPITALIST RETURNED CALL INFORMED HOSPITALIST THAT PB DROPPED LOW 76/50, LOW URINE OUTPUT 35ML/3HRS NEW ORDERS RECEIVED
--- NOTE | 2019-08-05 21:18 | NUR ---
LOW BP 86/48, PAGED HOSPITALIST
--- NOTE | 2019-08-05 21:18 | NUR ---
PAGED HOSPITALIST REGARDING LOW BP 76/50
[2019-08-05] MEDS ORDERED: ALBUMIN 5% 250 ML IV ONE (22:00)
--- NOTE | 2019-08-05 23:40 | NUR ---
PAGED HOSPITALIST REGARDING LOW BP 73/49 YONAS IS NOT SHOWING THE BEST WAVE FORM BP IS HIGHER WITH GOOD WAVE FORM RECEIVED NEW ORDERS
[2019-08-06] VITALS (106 sets, daily range): BP systolic 63–144; BP diastolic 28–80
[2019-08-06] MEDS: IPRATROPIUM BROM 0.5 MG/2.5ML INH SOL NEB SCH ×5 (00:11→23:54)
[2019-08-06] MEDS: ALBUTEROL SULF 2.5 MG/0.5ML(0.5%) NEB SOLN NEB SCH ×5 (00:12→23:54)
[2019-08-06] MEDS: NOREPINEPHRINE 8 MG/250ML KIT 250 ML IV SCH ×2 (01:06→22:48)
[2019-08-06] MEDS: FAMOTIDINE (10MG/ML) 2ML VL IV SCH ×2 (02:09→17:02)
[2019-08-06] MEDS: fentaNYL Drip 2500mCg/250mlNS 250 ML IV SCH ×2 (02:53→17:44)
--- NOTE | 2019-08-06 03:45 | NUR ---
CARES PARTIAL BED LINEN CHANGE, OPTIFOAM APPLIED TO SACRAM SACRUM AND BOTH HEELS ARE RED
[2019-08-06 04:20] LABS: Basophils # (auto) 0 10 ^3/uL (0-0.2); Basophils % (auto) 0.2 % (0.0-2.0); Eosinophils # (auto) 0.1 10 ^3/uL (0-0.8); Eosinophils % (auto) 0.7 % (0.0-7.0); Hematocrit 44.1 % (36.0-46.0); Hemoglobin 14.1 g/dL (12.2-16.2); Lymphocytes # (auto) 2.1 10 ^3/uL (0.4-5.4); Lymphocytes % (auto) 10.8 % (10.0-50.0); Mean Corpuscular Hemoglobin 30.1 pg (28.0-32.0); Mean Corpuscular Hgb Conc. 31.9 g/dL (32.0-36.0); Mean Corpuscular Volume 94.6 fL (80.0-100.0); Monocytes % (auto) 10.2 % (0.0-12.0); Neutrophils # (auto) 15.6 10 ^3/uL (1.6-8.6); Neutrophils % (auto) 78.1 % (37.0-80.0); Platelet Count (auto) 201 10^3/uL (140-450); Red Blood Cells 4.66 10^6/uL (4.0-5.20); Red Cell Distribution Width 14.5 % (11.8-14.3); White Blood Cell 19.9 10^3/uL (4.4-10.8)
[2019-08-06] MEDS: SOD CHL 0.9%/ KCL 40MEQ 1,000 ML IV SCH ×3 (04:27→13:18)
[2019-08-06 04:51] LABS: Albumin 2.1 g/dL (3.4-5.0); BUN/Creatinine Ratio 35.8; Bilirubin, Total 1.2 mg/dL (0.2-1.0); Calcium 7.4 mg/dL (8.5-10.1); Total Protein 4.9 g/dL (6.4-8.2)
--- NOTE | 2019-08-06 04:57 | NUR ---
PAGED HOSPITALIST REGARDING ELEVATED WBC 19.9 NO NEW ORDERS
[2019-08-06] MEDS: PIPERACILLIN-TAZOB 3.375GM 100 ML IV SCH ×4 (05:36→17:35)
--- NOTE | 2019-08-06 08:30 | NUR ---
IV removal IV DC'd with clean sterile technique, catheter fully intact. Pressure dressing applied to site. Patient tolerated well. NOTE: LEFT FOREARM
[2019-08-06] MEDS ORDERED: VANCOMYCIN PER PHARMACY 0 MG IV SCH (08:45)
--- NOTE | 2019-08-06 08:45 | NUR ---
DR Yolette RODRÍGUEZ AT BEDSIDE DISCUSSED PATIENTS STATUS THROUGHOUT NIGHT AND PLAN OF CARE. NEW ORDERS PLACED
[2019-08-06] MEDS: MIDAZOLAM DRIP 50 mg/50mL 50 ML IV SCH ×3 (08:48→17:02)
[2019-08-06] MEDS ORDERED: VANCOMYCIN 1GM/250ML 250 ML IV ONE (09:15)
--- NOTE | 2019-08-06 12:50 | NUR ---
PATIENTS DAUGHTER KASSI CALLED FOR UPDATE PROVIDED PASSWORD. UPDATED ON CURRENT STATUS AND PLAN OF CARE.
--- NOTE | 2019-08-06 13:20 | NUR ---
Respiratory note: PT UNABLE TO COMPLETE CPAP TRIAL PASS 1 MINUTE. INCREASED WOB, RR HIGH 40'S, AND DECREASED VT. RN AT BEDSIDE. WILL CONTINUE TO MONITOR PT.
--- NOTE | 2019-08-06 14:34 | NUR ---
RESTLESSNESS PATIENT IS INCREASINGLY RESTLESS, ELEVATED HEART RATE AND INCREASING RESPIRATORY RATE, TO MID 30S, WILL INCREASE SEDATION FOR PATIENTS COMFORT ON VENTILATOR.
--- NOTE | 2019-08-06 14:39 | NUR ---
[employer]UT[employer] CONSULTANT AT BEDSIDE DISCUSSED PATIENTS STATUS. NO NEW ORDERS AT THIS TIME
--- NOTE | 2019-08-06 15:33 | NUR ---
DR Lenore GASCA AT BEDSIDE DISCUSSED PATIENTS STATUS, NO NEW ORDERS
--- NOTE | 2019-08-06 15:50 | NUR ---
DR HUNTLEY AT BEDSIDE DISCUSSED PATIENTS STATUS, NEW ORDERS RECEIVED
--- NOTE | 2019-08-06 17:00 | NUR ---
CENTRAL LINE PLACEMENT CONSENT RECEIVED TELEPHONE CONSENT FROM PATIENTS BERENICE SOLITARIO FOR CENTRAL LINE PLACEMENT, VERIFIED WITH TWO RNS. CONSENT IN CHART
[2019-08-06] MEDS ORDERED: ROCURONIUM 10MG/ML 10ML VIAL IV ONE ×2 (17:43→17:45)
--- NOTE | 2019-08-06 18:02 | NUR ---
DR HUNTLEY AT BEDSIDE FOR CENTRAL LINE PLACEMENT LEFT IJ TLC PLACED, CXR VERIFIED PLACEMENT.
[2019-08-06] MEDS ORDERED: SODIUM CHLORIDE 0.9% 1,000 ML IV ONE (21:00)
[2019-08-06] MEDS: MORPHINE SULF INJ 2 MG/ML SYRINGE 1ML IV PRN (23:12)
[2019-08-07] VITALS (105 sets, daily range): BP systolic 70–137; BP diastolic 37–95
[2019-08-07] MEDS: FAMOTIDINE (10MG/ML) 2ML VL IV SCH ×2 (00:38→15:00)
[2019-08-07 04:00] LABS: Basophils # (auto) 0 10 ^3/uL (0-0.2); Basophils % (auto) 0.2 % (0.0-2.0); Eosinophils # (auto) 0.3 10 ^3/uL (0-0.8); Eosinophils % (auto) 2.7 % (0.0-7.0); Hematocrit 34.1 % (36.0-46.0); Hemoglobin 11.4 g/dL (12.2-16.2); Lymphocytes # (auto) 1.5 10 ^3/uL (0.4-5.4); Lymphocytes % (auto) 14.2 % (10.0-50.0); Mean Corpuscular Hemoglobin 31.3 pg (28.0-32.0); Mean Corpuscular Hgb Conc. 33.4 g/dL (32.0-36.0); Mean Corpuscular Volume 93.9 fL (80.0-100.0); Monocytes # (auto) 1.1 10 ^3/uL (0-1.3); Monocytes % (auto) 10.4 % (0.0-12.0); Neutrophils # (auto) 7.4 10 ^3/uL (1.6-8.6); Neutrophils % (auto) 72.5 % (37.0-80.0); Nucleated Red Blood Cells % 0.1 %; Platelet Count (auto) 144 10^3/uL (140-450); Red Blood Cells 3.63 10^6/uL (4.0-5.20); Red Cell Distribution Width 14.2 % (11.8-14.3); White Blood Cell 10.3 10^3/uL (4.4-10.8)
[2019-08-07] MEDS: VANCOMYCIN 1GM/250ML 250 ML IV SCH ×2 (04:00→21:18)
[2019-08-07 04:16] LABS: Calcium 7.2 mg/dL (8.5-10.1); Potassium 4.6 mmol/L (3.5-5.1)
[2019-08-07 04:21] LABS: BUN/Creatinine Ratio 30.1; Bilirubin, Total 0.7 mg/dL (0.2-1.0); Total Protein 4.6 g/dL (6.4-8.2)
[2019-08-07] MEDS: DexMEDEtomidine 400 MCG in D5W 5% 96 ML IV SCH ×2 (04:39→16:50)
[2019-08-07] MEDS: PIPERACILLIN-TAZOB 3.375GM 100 ML IV SCH ×5 (05:44→23:34)
[2019-08-07] MEDS: SOD CHL 0.9%/ KCL 40MEQ 1,000 ML IV SCH ×2 (05:45→11:39)
[2019-08-07] MEDS: ALBUTEROL SULF 2.5 MG/0.5ML(0.5%) NEB SOLN NEB SCH ×3 (06:22→18:53)
[2019-08-07] MEDS: IPRATROPIUM BROM 0.5 MG/2.5ML INH SOL NEB SCH ×3 (06:23→18:53)
--- NOTE | 2019-08-07 08:40 | NUR ---
DR Yolette RODRÍGUEZ AT BEDSIDE DISCUSSED PATIENTS STATUS AND PLAN OF CARE, NEW ORDERS RECEIVED
[2019-08-07] MEDS ORDERED: TPN PER PHARMACY 0 ML IV SCH (09:00)
--- NOTE | 2019-08-07 09:30 | NUR ---
SEDATION VACATION- PATIENT DID NOT TOLERATE COMPLETELY OFF SEDATION, CURRENTLY ON PRECEDEX FOR POTENTIAL CPAP Addendum: 08/07/19 at 1019 by Madalyn Be RN Amended: Links added.
[2019-08-07 10:43] LABS: Magnesium 1.9 mg/dL (1.6-2.6)
[2019-08-07] MEDS ORDERED: DEXTROSE (50%) 50ML SYRG IV SCH ×2 (10:45→18:00)
[2019-08-07 10:47] LABS: Pre Albumin 8.3 mg/dL (20.0-40.0)
[2019-08-07] MEDS ORDERED: ACCU-CHEK COMFORT CURVE STRIP VI SCH (12:00)
[2019-08-07] MEDS ORDERED: InsuLIN REG 1unit/0.01ml Soln (100units/ml) SC SCH (12:00)
--- NOTE | 2019-08-07 12:09 | NUR ---
Nutrition Followup Notes (new PN) WT: 60.8 kg Pt`s intubated sedated with no family by bedside. pt had sx on 08/04, pt continues to be NPO. per RN pt to [facility] Est Energy needs: 7038-3890 kcals (20-23 kcal/kgBW), Est Protein needs: 64-71 gms/day (1.0-1.1 gm/kgBW). Will continue to monitor and reassess prn. LABS: BUN 22 H, ALB 2.0 L, GLU 137 H GI: pt had 1 BM 08/03 with 20 ml gastric drainage per RN doc BS:skin score 13 mod risk PES: Problem Altered nutrition related lab values r.t current chronic medical condition aeb hyperglycemia, mild hypoalbuminemia Increased nutrient needs r.t current medical condition aeb pt`s NPO Comments 1) Continue to closely monitor pt NPO status. Consider alternate nutrition support if pt NPO > 48 hrs. 2) Advance PN support to meet > 75% of needs. 3) Gradually advance pt to oral 2gNa diet when medically feasible and as tolerated. 3) Continue current plan of care
--- NOTE | 2019-08-07 12:30 | NUR ---
PATIENTS DAUGHTER CALLED FOR UPDATE PROVIDED PASSWORD. UPDATED ON CURRENT STATUS AND PLAN OF CARE
--- NOTE | 2019-08-07 12:35 | NUR ---
DR HUNTLEY AT BEDSIDE DISCUSSED PATIENTS STATUS AND RECEIVED NEW ORDERS.
--- NOTE | 2019-08-07 16:32 | NUR ---
assessment Patient is a 78 year old female who is in ICU on a vent. Per patients daughter Saskia prior to admission patient lived home with her and functioned with her assistance. Per Saskia patient has a fww, wheelchair, bedside commode, 02, and nebulizer. Patients PCP is Dr Matias. Patient is on service with [employer]. I informed Saskia patients post discharge needs to be determined after extubation and prior to discharge. Saskia verbalized understanding. Addendum: 08/07/19 at 1650 by Mera PAIGE Amended: Links added.
[2019-08-07] MEDS: fentaNYL Drip 2500mCg/250mlNS 250 ML IV SCH ×2 (17:44→18:18)
[2019-08-07] MEDS: InsuLIN REG 1unit/0.01ml Soln (100units/ml) SC SCH ×2 (18:00→23:45)
[2019-08-07] MEDS: ACCU-CHEK COMFORT CURVE STRIP VI SCH ×2 (18:00→23:33)
--- NOTE | 2019-08-07 18:05 | NUR ---
DR Lenore GASCA AT BEDSIDE DISCUSSED PATIENTS STATUS. RECEIVED NEW ORDERS
--- NOTE | 2019-08-07 19:00 | NUR ---
Opening notes Assumed care, still on vent, AC mode and sedation with precedex and fentanyl, see IV spreadsheet for titration, A-line patent and intact, NGT to LIS, FC draining to a clear urine, abdominal midline incision is clean, dry and intact, still with adan. Bed in lowest position with side rails up, bed alarm on. Will continue care.
[2019-08-07] MEDS ORDERED: PPN PER PHARMACY IV NR ×8 (20:00)
[2019-08-07] MEDS: GEODON IM SCH (22:00)
[2019-08-07] MEDS: NOREPINEPHRINE 8 MG/250ML KIT 250 ML IV SCH (22:48)
[2019-08-08] VITALS (81 sets, daily range): BP systolic 57–266; BP diastolic 31–255
[2019-08-08] MEDS: ALBUTEROL SULF 2.5 MG/0.5ML(0.5%) NEB SOLN NEB SCH ×4 (00:26→18:02)
[2019-08-08] MEDS: IPRATROPIUM BROM 0.5 MG/2.5ML INH SOL NEB SCH ×4 (00:26→18:02)
--- NOTE | 2019-08-08 01:27 | NUR ---
RECIEVED PT VENTILATED AND SEDATE WITH FENTANYL, PROPOFOL AND VERSED GTT, NO PRESSORS, ACCU CHECK DONE-BS 113, SEE INTERVENTIONS FOR ASSESSMENT AND VITAL SIGNS, ORAL CARE AND REPOSITIONED
[2019-08-08] MEDS: LORazepam 2MG/ML-1ML VIAL IV PRN ×4 (02:05→22:48)
[2019-08-08] MEDS: FAMOTIDINE (10MG/ML) 2ML VL IV SCH ×2 (02:05→14:12)
--- NOTE | 2019-08-08 02:05 | NUR ---
Ativan 0.5 mg given slow IV push, fentanyl sedation titrating down to 20 mcg/hr
--- NOTE | 2019-08-08 03:14 | NUR ---
Patient bathe/linen change Patient given complete CHG bath. Skin integrity assessed for any changes. Full linens and gown changed. Patient repositioned for comfort.
--- NOTE | 2019-08-08 03:30 | NUR ---
Off fentanyl drip, precedex kept @0.3 mcg/hr, pt asleep, R 14, HR 62, sat 98%, BP 124/41.
[2019-08-08 03:58] LABS: Basophils # (auto) 0.1 10 ^3/uL (0-0.2); Basophils % (auto) 0.9 % (0.0-2.0); Eosinophils # (auto) 0.5 10 ^3/uL (0-0.8); Eosinophils % (auto) 5.3 % (0.0-7.0); Hematocrit 32.8 % (36.0-46.0); Hemoglobin 10.6 g/dL (12.2-16.2); Lymphocytes # (auto) 1.2 10 ^3/uL (0.4-5.4); Lymphocytes % (auto) 13.7 % (10.0-50.0); Mean Corpuscular Hemoglobin 30.5 pg (28.0-32.0); Mean Corpuscular Hgb Conc. 32.4 g/dL (32.0-36.0); Mean Corpuscular Volume 94.3 fL (80.0-100.0); Monocytes # (auto) 0.8 10 ^3/uL (0-1.3); Neutrophils # (auto) 6.2 10 ^3/uL (1.6-8.6); Neutrophils % (auto) 71.1 % (37.0-80.0); Platelet Count (auto) 154 10^3/uL (140-450); Red Blood Cells 3.47 10^6/uL (4.0-5.20); Red Cell Distribution Width 14.3 % (11.8-14.3); White Blood Cell 8.7 10^3/uL (4.4-10.8)
[2019-08-08 04:22] LABS: Albumin 1.8 g/dL (3.4-5.0); BUN/Creatinine Ratio 27.5; Calcium 7.7 mg/dL (8.5-10.1); Magnesium 1.9 mg/dL (1.6-2.6); Potassium 4.2 mmol/L (3.5-5.1)
[2019-08-08 04:34] LABS: Bilirubin, Total 0.4 mg/dL (0.2-1.0); Total Protein 4.6 g/dL (6.4-8.2)
[2019-08-08 04:53] LABS: Phosphorus 1.8 mg/dL (2.5-4.90)
[2019-08-08] MEDS: PIPERACILLIN-TAZOB 3.375GM 100 ML IV SCH ×4 (05:19→23:54)
[2019-08-08] MEDS: ACCU-CHEK COMFORT CURVE STRIP VI SCH ×4 (05:19→23:04)
[2019-08-08] MEDS: InsuLIN REG 1unit/0.01ml Soln (100units/ml) SC SCH ×4 (05:24→23:04)
--- NOTE | 2019-08-08 05:30 | NUR ---
Wound dressing Cleansed wound and dressed with betadine, site noted to be clean, dry and intact with adan, abdominal site covered with primapore dressing.
--- NOTE | 2019-08-08 06:42 | NUR ---
Status update Started to be awake, tachypneic, mid 20's, instructed to relax and calm down, able to follow simple commands like opening her eyes and nodding her head.
--- NOTE | 2019-08-08 07:09 | NUR ---
Closing notes Resting on bed calmly with her eyes closed, VS stable, still on vent.
--- NOTE | 2019-08-08 08:12 | NUR ---
AT BEDSIDE; Dr. Rafita Banda at bedside, discussed plan for CPAP trial for today. No new orders at this time.
[2019-08-08] MEDS: GEODON IM SCH ×2 (08:32→21:23)
--- NOTE | 2019-08-08 09:00 | NUR ---
SEDATION VACATION: Patient unable to have complete cessation of sedation due to severe agitation. Patient will remain on precedex drip, Fentanyl drip restarted at 0850 due to tachypnea rate 45-50, tachycardia rate 150's, hypertension SBP 160's, and severe agitation as patient is flopping in bed and attempting to pull at tubes and lines. Addendum: 08/08/19 at 1142 by Carleen Winston RN Amended: Links added.
[2019-08-08] MEDS: DexMEDEtomidine 400 MCG in D5W 5% 96 ML IV SCH (09:36)
--- NOTE | 2019-08-08 11:34 | NUR ---
AT BEDSIDE: Dr. Hennessy at bedside with RT. Reviewed CPAP trail results, orders received to turn off Fentanyl drip then extubate patient. Dr. Hennessy states okay to titrate off Precedex after patient is extubated.
--- NOTE | 2019-08-08 11:53 | NUR ---
RT NOTE: PT. EXTUBATED WITHOUT INCIDENT, PER DR. HUNTLEY VERBAL ORDER. NO STRIDOR NOTED. PT. PLACED ON 10LPM/35% COOL AEROSOL MASK. PT. APPEARS ANXIOUS AT TIMES. PT. HR. 92, RR 25, POX 98%. RN JUAN RAMON AWARE. WILL CONTINUE TO MONITOR.
--- NOTE | 2019-08-08 11:53 | NUR ---
EXTUBATION: Patient extubated by Soniya RT, placed on cool mist mask. Patient does not appear to be in any distress, no stridor noted.
[2019-08-08] MEDS ORDERED: POTASSIUM PHOSPHATE 22 MEQ in SODIUM CHL 0.9% 100 ML IV ONE (12:00)
--- NOTE | 2019-08-08 12:55 | NUR ---
A-LINE; Right radial A-line discontinued, manual pressure applied for 3 minutes. No bleeding noted, small pressure dressing applied to area. IV to right wrist discontinued.
--- NOTE | 2019-08-08 13:02 | NUR ---
AT BEDSIDE: Dr. Darron Michaels at bedside, updated on patient condition. States to leave NGT to LIS for today, will evaluate tomorrow for possible clamping of NGT.
--- NOTE | 2019-08-08 13:25 | NUR ---
RT NOTE: PT. PLACED ON 4L N/C WITH HUMIDIFICATION. PT. APPEARS TO BE TOLERATING WELL. PT. HR 98, RR 19, POX 97%. WILL CONTINUE TO MONITOR. ROSA M SHELL.
[2019-08-08] MEDS: HYDROmorphone HCL 2 MG/ML VL IV PRN ×3 (13:55→22:09)
[2019-08-08] MEDS: hydrALAZINE HCL 20 MG/ML VL IV PRN (14:10)
[2019-08-08] MEDS: VANCOMYCIN 1GM/250ML 250 ML IV SCH (16:45)
--- NOTE | 2019-08-08 16:50 | NUR ---
AGITATION; Patient agitated, pulling at lines, shaking HR increased. Medicated with Ativan as per orders.
--- NOTE | 2019-08-08 18:39 | NUR ---
HYPERTENSION/PAIN; Patient hypertensive SBP 200's, patient reports 6/10 pain. Medicated with Dilaudid as per orders.
--- NOTE | 2019-08-08 19:00 | NUR ---
Opening shift note: Primary RN Shaan received report on patient. Patient currently asleep at this time. Central line right IJ 3 lumen, infusing TPN @ 44mL/hr. Richmond catheter draining via gravity with yellow urine. Safety precautions in place. Will continue to monitor.
[2019-08-08] MEDS ORDERED: TPN PER PHARMACY IV NR ×9 (20:00)
--- NOTE | 2019-08-08 20:00 | NUR ---
Patient noted with a temp of 100.3. RN implemented cooling measures with a moist cool wet wash cloth to the forehead and ice packs. RN also placed fan for patient to provide cool air. RN will continue to monitor and assess patient.
--- NOTE | 2019-08-08 21:00 | NUR ---
Temp: RN reassessed patient temp and noted it to be 99.8. RN will continue to monitor and assess patient. Currently cooling measures are noted to be effective in managing patient's temp.
[2019-08-08] MEDS: NOREPINEPHRINE 8 MG/250ML KIT 250 ML IV SCH (21:23)
[2019-08-09] VITALS (29 sets, daily range): BP systolic 109–190; BP diastolic 61–131
--- NOTE | 2019-08-09 | NUR ---
Temp: Patient temp reassessed. Patient now noted with a Temp of 99.5. RN will continue to monitor patient.
[2019-08-09] MEDS: ALBUTEROL SULF 2.5 MG/0.5ML(0.5%) NEB SOLN NEB SCH ×4 (00:07→18:14)
[2019-08-09] MEDS: IPRATROPIUM BROM 0.5 MG/2.5ML INH SOL NEB SCH ×4 (00:07→18:14)
[2019-08-09] MEDS: LABETALOL HCL 5 MG/ML 4ML SYRINGE IV PRN (01:21)
--- NOTE | 2019-08-09 01:42 | NUR ---
Urine output: Patient noted with 800mL of urine output.
--- NOTE | 2019-08-09 01:44 | NUR ---
Temp recheck: Patient temp was reassessed. Patient continues to hold a Temp of 99.5. RN will continue to monitor patient.
[2019-08-09] MEDS: FAMOTIDINE (10MG/ML) 2ML VL IV SCH ×2 (01:45→14:20)
--- NOTE | 2019-08-09 02:30 | NUR ---
Bed bath: Patient given bed bath. Patient tolerated bed bath well with some s/s of discomfort. Patient was yelling and stating she was in pain when RN asked. Patient was offered PRN Dilaudid for pain management and patient agreed. RN placed new sacral optifoam for preventive measures. Sacral skin still intact.
[2019-08-09] MEDS: HYDROmorphone HCL 2 MG/ML VL IV PRN ×2 (02:32→08:55)
[2019-08-09 03:58] LABS: Basophils # (auto) 0 10 ^3/uL (0-0.2); Basophils % (auto) 0.5 % (0.0-2.0); Eosinophils # (auto) 0.4 10 ^3/uL (0-0.8); Eosinophils % (auto) 4.3 % (0.0-7.0); Hematocrit 35.2 % (36.0-46.0); Hemoglobin 11.7 g/dL (12.2-16.2); Lymphocytes # (auto) 1.2 10 ^3/uL (0.4-5.4); Lymphocytes % (auto) 11.7 % (10.0-50.0); Mean Corpuscular Hemoglobin 30.8 pg (28.0-32.0); Mean Corpuscular Hgb Conc. 33.2 g/dL (32.0-36.0); Mean Corpuscular Volume 92.8 fL (80.0-100.0); Monocytes # (auto) 1.1 10 ^3/uL (0-1.3); Monocytes % (auto) 10.7 % (0.0-12.0); Neutrophils # (auto) 7.4 10 ^3/uL (1.6-8.6); Neutrophils % (auto) 72.8 % (37.0-80.0); Platelet Count (auto) 163 10^3/uL (140-450); Red Blood Cells 3.79 10^6/uL (4.0-5.20); Red Cell Distribution Width 13.7 % (11.8-14.3); White Blood Cell 10.1 10^3/uL (4.4-10.8)
[2019-08-09 04:15] LABS: Potassium 3.7 mmol/L (3.5-5.1)
[2019-08-09 04:20] LABS: Albumin 1.9 g/dL (3.4-5.0); Bilirubin, Total 0.7 mg/dL (0.2-1.0); Calcium 7.2 mg/dL (8.5-10.1); Phosphorus 3.1 mg/dL (2.5-4.90)
[2019-08-09] MEDS: hydrALAZINE HCL 20 MG/ML VL IV PRN (04:34)
[2019-08-09] MEDS: InsuLIN REG 1unit/0.01ml Soln (100units/ml) SC SCH ×3 (05:38→18:00)
[2019-08-09] MEDS: ACCU-CHEK COMFORT CURVE STRIP VI SCH ×3 (05:39→18:00)
[2019-08-09] MEDS: LORazepam 2MG/ML-1ML VIAL IV PRN ×2 (05:48→19:40)
[2019-08-09] MEDS: PIPERACILLIN-TAZOB 3.375GM 100 ML IV SCH ×3 (05:48→18:00)
--- NOTE | 2019-08-09 05:49 | NUR ---
Temp: Patient temp reassessed. Patient now noted with a Temp of 99.4. RN will continue to monitor patient.
--- NOTE | 2019-08-09 06:00 | NUR ---
Urine output: Patient noted with 650mL of urine output.
[2019-08-09] MEDS: GEODON IM SCH (07:55)
[2019-08-09] MEDS: FLUCONAZOLE 200MG/100ML 100 ML IV SCH ×2 (10:20→11:25)
--- NOTE | 2019-08-09 10:58 | NUR ---
Nutrition Followup Notes (new PN) WT: 77.1 kg Pt`s intubated sedated with no family by bedside. pt had sx on 08/04, pt continues to be NPO, TPN ordered at 55ml/hr which provides 1330 kcal and 70g protein, 1050 NCP. This provides 100% of energy and protein needs. Est Energy needs: 6353-1355 kcals (20-23 kcal/kgBW), Est Protein needs: 64-71 gms/day (1.0-1.1 gm/kgBW). Will continue to monitor and reassess prn. LABS: Glu 136H, Alb 1.9L, Ca 7.2L GI: pt had 1 BM 08/04 and gastric residuals 100 ml 08/07 BS:skin score 13 mod risk PES: Problem Altered nutrition related lab values r.t current chronic medical condition aeb hyperglycemia, mild hypoalbuminemia Increased nutrient needs r.t current medical condition aeb pt`s NPO Comments 1) Continue to closely monitor pt NPO status. Consider alternate nutrition support if pt NPO > 48 hrs. 2) Continue PN support to meet > 75% of needs. 3) Gradually advance pt to oral 2gNa diet when medically feasible and as tolerated. 4) Continue current plan of care 5) F/u 2-3 days
--- NOTE | 2019-08-09 11:22 | NUR ---
ACTIVITY; Patient OOB to chair with physical therapy, tolerating well. Discussed with patient importance of remaining in the chair for as long as possible to assist with surgical recovery.
--- NOTE | 2019-08-09 19:00 | NUR ---
Opening shift note: Primary RN Shaan received report on patient. Patient currently asleep at this time. Central line right IJ 3 lumen, infusing TPN @ 51mL/hr. Richmond catheter draining via gravity with yellow urine. Safety precautions in place. Will continue to monitor.
[2019-08-09] MEDS ORDERED: TPN PER PHARMACY IV NR ×10 (20:00)
--- NOTE | 2019-08-09 20:30 | NUR ---
Patient transferred to room 278B with no s/s of discomfort or distress.
--- NOTE | 2019-08-09 20:30 | NUR ---
ICU Downgrade Patient downgraded to Telemetry after SBAR received. Patient is asleep and lethargic, responds to name and shaking. Patient placed on bedside oxygen 4L via nasal cannula. NG tube is clamped at this time. Explained plan of care to patient. No signs or symptoms of distress noted. Will continue to monitor.
[2019-08-09] MEDS: VANCOMYCIN 1GM/250ML 250 ML IV SCH (21:12)
[2019-08-10] MEDS ORDERED: methylPREDNISolone SOD SUCC 40 MG/ML VL IV ONE (00:15)
[2019-08-10] MEDS ORDERED: ALBUTEROL SULF 2.5 MG/0.5ML(0.5%) NEB SOLN NEB ONE (00:15)
[2019-08-10] MEDS ORDERED: IPRATROPIUM BROM 0.5 MG/2.5ML INH SOL NEB ONE (00:15)
[2019-08-10] MEDS: PIPERACILLIN-TAZOB 3.375GM 100 ML IV SCH ×5 (00:39→23:52)
[2019-08-10] MEDS: ACCU-CHEK COMFORT CURVE STRIP VI SCH ×4 (01:05→18:48)
[2019-08-10] MEDS: FAMOTIDINE (10MG/ML) 2ML VL IV SCH ×2 (01:05→13:45)
[2019-08-10] MEDS: InsuLIN REG 1unit/0.01ml Soln (100units/ml) SC SCH ×4 (01:08→18:54)
[2019-08-10 05:40] VITALS: BP 142/74
[2019-08-10] MEDS: ALBUTEROL SULF 2.5 MG/0.5ML(0.5%) NEB SOLN NEB SCH ×4 (06:27→18:34)
[2019-08-10] MEDS: IPRATROPIUM BROM 0.5 MG/2.5ML INH SOL NEB SCH ×4 (06:27→18:34)
[2019-08-10] MEDS ORDERED: BUMETANIDE 2.5mg/10ml (0.25 mg/ml) INJ IV ONE (07:00)
[2019-08-10 07:03] LABS: Albumin 1.9 g/dL (3.4-5.0); Calcium 7.3 mg/dL (8.5-10.1); Magnesium 2.2 mg/dL (1.6-2.6); Potassium 3.2 mmol/L (3.5-5.1)
[2019-08-10 07:08] LABS: Bilirubin, Total 0.6 mg/dL (0.2-1.0); Phosphorus 2.6 mg/dL (2.5-4.90); Total Protein 5.2 g/dL (6.4-8.2)
--- NOTE | 2019-08-10 07:15 | NUR ---
Opening Shift Note Assumed care of patient, awake and alert. No S/S of distress/SOB or pain. follows command and answers questions,Instructed on POC and to keep NPO NGT in place,right arm noted to bruise,swollen,and sipping,left arm noted to be bruise and swollen,bhatia catheter in place,left jugular triple lumen catheter in place TPN infusing at 55ml/hr.see assessment for detail.call light within reach,patient reminded instructed to call for assistance,verbalized understanding. will continue to monitor for changes Q1hr and PRN.
[2019-08-10 07:34] LABS: BUN/Creatinine Ratio 21.8
[2019-08-10 09:00] VITALS: BP 115/92
[2019-08-10] MEDS ORDERED: POTASSIUM PHOSPHATE 22 MEQ in SODIUM CHL 0.9% 100 ML IV ONE (10:00)
--- NOTE | 2019-08-10 10:30 | NUR ---
PHYSICAL THERAPY AT BEDSIDE,ASSISTED PATIENT TO GET OOB TO BEDSIDE CHAIR,INSTRUCTED PATIENT TO STAY UP IN CHAIR,CALL LIGHT WITHIN REACH,INSTRUCTED TO CALL FOR ASSISTANCE.
[2019-08-10] MEDS: FLUCONAZOLE 200MG/100ML 100 ML IV SCH ×2 (10:46→11:41)
--- NOTE | 2019-08-10 11:00 | NUR ---
PATIENT CALLED STATED CAN NOT TOLERATE BEING UP IN CHAIR ANYMORE WANTED TO GO BACK TO BED,PAGED P.T.,AT BEDSIDE PUT BACK PATIENT TO BED MADE COMFORTABLE.
--- NOTE | 2019-08-10 12:00 | NUR ---
WOUND CARE NOTE: WOUND CARE IN TO SEE PATIENT PER WOUND CARE REQUEST. PATIENT ADMITTED FOR PARTIAL SMALL BOWEL OBSTRUCTION. PATIENT'S WONG SCORE IS 13. PATIENT NOTED BY BEDSIDE NURSE TO HAVE SKIN INTEGRITY ISSUES. PHOTOGRAPHS TAKEN FOR REFERENCE. PATIENT HAS INTERTRIGINOUS RASH TO GROIN/PERINEAL AREA. PATIENT ALSO HAS MASD WITH SKIN EROSION TO SACRAL AREA. ANTIFUNGAL BARRIER CREAM APPLIED TO GROIN AREA. ZGUARD MOISTURE BARRIER CREAM AND OPTIFOAM GENTLE SACRAL DRESSING APPLIED TO SACRUM. ORDERED SPECIALTY AIR MATTRESS. RECOMMEND: SPECIALTY AIR MATTRESS. PATIENT TO BE TRANSFERRED UPON DELIVERY BY [facility].FREQUENT Q2HOUR REPOSITIONING CONDITION PERMITS. BID/PRN APPLICATION OF BARRIER CREAMS TO AFFECTED GROIN AND SACRAL AREAS. SKIN/WOUND CARE PLAN. CONTINUED MONITORING BY WOUND CARE TEAM. Addendum: 08/10/19 at 1513 by MORRIS LOCO RN RN Amended: Links added.
[2019-08-10 13:00] VITALS: BP 133/70
[2019-08-10 17:00] VITALS: BP 128/71
--- NOTE | 2019-08-10 17:26 | NUR ---
MD VISIT DR. Darron GASCA HERE TO SEE AND EXAMINED PATIENT RECEIVED ORDER OK TO GIVE ICE CHIPS
--- NOTE | 2019-08-10 19:18 | NUR ---
STATUS UNCHANGED,NO DISTRESS NO DISCOMFORT,RESTING QUIETLY REPORT GIVEN TO INCOMING NOC SHIFT RN
[2019-08-10] MEDS ORDERED: TPN PER PHARMACY IV NR ×11 (20:00)
--- NOTE | 2019-08-10 20:05 | NUR ---
Opening Shift Note Assumed care of patient, awake and alert, oriented x 3, re-oriented to time, follows direction. On oxygen ar 2L via NC with even and unlabored respirations. NGT clamped at this time per orders. Patient denies nausea. Patient tolerates ice chips well. Patient denies passing gas at this time. Noted hypoactive bowel sounds, abd soft and non-tender to touch. medical abd incision clean, dry, and intact. No S/S of distress/SOB. [place] intact and draining to gravity. Bed in lowest locked position with side rails up x 2 and call [facility] within reach, bed alarm on. Instructed on POC and to call for assist PRN, will continue to monitor for changes Q1hr and PRN.
[2019-08-10] MEDS: VANCOMYCIN 1GM/250ML 250 ML IV SCH (21:24)
[2019-08-10 22:00] VITALS: BP 150/68
[2019-08-10] MEDS: LORazepam 2MG/ML-1ML VIAL IV PRN (23:52)
[2019-08-11] MEDS: ACCU-CHEK COMFORT CURVE STRIP VI SCH ×4 (00:04→17:56)
[2019-08-11] MEDS: InsuLIN REG 1unit/0.01ml Soln (100units/ml) SC SCH ×4 (00:12→18:13)
[2019-08-11] MEDS: IPRATROPIUM BROM 0.5 MG/2.5ML INH SOL NEB SCH ×4 (00:21→18:40)
[2019-08-11] MEDS: ALBUTEROL SULF 2.5 MG/0.5ML(0.5%) NEB SOLN NEB SCH ×4 (00:21→18:40)
[2019-08-11] MEDS: FAMOTIDINE (10MG/ML) 2ML VL IV SCH ×2 (01:52→13:51)
[2019-08-11 05:00] VITALS: BP 157/68
[2019-08-11] MEDS: PIPERACILLIN-TAZOB 3.375GM 100 ML IV SCH ×3 (05:15→17:56)
[2019-08-11] MEDS: hydrALAZINE HCL 20 MG/ML VL IV PRN (05:16)
[2019-08-11 06:54] LABS: Albumin 1.8 g/dL (3.4-5.0); BUN/Creatinine Ratio 30.8; Bilirubin, Total 0.4 mg/dL (0.2-1.0); Calcium 7.3 mg/dL (8.5-10.1); Magnesium 2.3 mg/dL (1.6-2.6); Phosphorus 2.3 mg/dL (2.5-4.90)
--- NOTE | 2019-08-11 06:59 | NUR ---
Closing note patient resting in bed with HOB elevated, on oxygen at 2L via NC with even and unlabored respirations, no s/s of distress. NGT remains clamped, no nausea through out shift. Patient on specialty air mattress. Left IJ intact and patent infusing tpn per orders. [place] intact and draining to gravity. Bed in lowest locked position with side rails up x 2 and call light within reach.
[2019-08-11 07:02] LABS: Potassium 2.7 mmol/L (3.5-5.1)
--- NOTE | 2019-08-11 07:05 | NUR ---
Spoke with HospitalistBharat MD RE: Critical K 2.7 new orders received, informed umer MEDEROS and endorsed care to umer Cohen. Addendum: 08/11/19 at 0715 by Lucie De León RN RN orders received for sodium phosphate 40meq IV x1 and potassium 60meq IV x 1 after sodium phosphate is infused, in that specific order, per Bharat KEENAN.
[2019-08-11] MEDS ORDERED: SODIUM PHOSPHATES 40 MEQ in D5W 5% 250 ML IV ONE (07:15)
--- NOTE | 2019-08-11 08:00 | NUR ---
PHARMACY WAS CONTACTED FOR PENDING POTASSIUM IV, MEDICATION WILL BE TUBED REPORTED, WAITING FOR MEDICATION FROM PHARMACY, PENDING PT, WILL CONTINUE MONITORING.
--- NOTE | 2019-08-11 08:00 | NUR ---
RECEIVED PATIENT ALERT AND X4, NOT IN DISTRESS, DIMINISHED LUNG SOUNDS, RR=20 SAT=93%, COUGHING AND DEEP BREATHING WAS ENCOURAGED, DENIED CP AND SOB AT THIS MOMENT, HEART R=SR 70'S WITH OCCASIONAL PVC'S, KEEP NPO ORDERED, ABDOMEN SOFT WITH HYPOACTIVE BS, MID ABDOMINAL INCISION SURGICAL WOUND COVERED WITH DRY AND INTACT DRESSING, VILLEDA CATH IN PLACE AND PATENT, DRAINING YELLOW URINE WITH SEDIMENTATIONS, GENERAL SKIN INTACT WARM TO TOUCH, RADIAL AND PEDAL PULSES PALPABLE, RESTING ON BED, HEAD OF BED ELEVATED, BED ON LOW POSITION, RAILS UP X2, CALL LIGHT ON REACH, POTASSIUM L=2.7 THIS MORNING, MD IS AWARE REPORTED, PENDING POTASSIUM IVP ORDERED, WILL CONTINUE MONITORING.
[2019-08-11 09:00] VITALS: BP 113/68
--- NOTE | 2019-08-11 10:00 | NUR ---
OUT OF BED TO THE CHAIR AND SITTING ON THE CHAIR, TOLERATING WELL, WILL CONTINUE MONITORING.
[2019-08-11 10:42] LABS: Basophils # (auto) 0 10 ^3/uL (0-0.2); Basophils % (auto) 0.3 % (0.0-2.0); Eosinophils # (auto) 0.1 10 ^3/uL (0-0.8); Hematocrit 33.2 % (36.0-46.0); Hemoglobin 11.1 g/dL (12.2-16.2); Lymphocytes % (auto) 10.4 % (10.0-50.0); Mean Corpuscular Hemoglobin 31.2 pg (28.0-32.0); Mean Corpuscular Hgb Conc. 33.6 g/dL (32.0-36.0); Mean Corpuscular Volume 92.7 fL (80.0-100.0); Monocytes % (auto) 10.2 % (0.0-12.0); Neutrophils # (auto) 7.6 10 ^3/uL (1.6-8.6); Neutrophils % (auto) 78.1 % (37.0-80.0); Nucleated Red Blood Cells % 0.1 %; Platelet Count (auto) 153 10^3/uL (140-450); Red Blood Cells 3.58 10^6/uL (4.0-5.20); Red Cell Distribution Width 13.6 % (11.8-14.3); White Blood Cell 9.8 10^3/uL (4.4-10.8)
[2019-08-11] MEDS: FLUCONAZOLE 200MG/100ML 100 ML IV SCH ×2 (11:00→12:15)
[2019-08-11] MEDS: POTASSIUM CHL 20MEQ/100ML 100 ML IV SCH ×3 (11:15→13:39)
--- NOTE | 2019-08-11 12:53 | NUR ---
Nutrition Followup Notes (new PN) WT: 73 kg Pt is extubated. Pt reports no GI issues. pt had sx on 08/04, pt continues to be NPO, TPN ordered at 66ml/hr which provides 1640 kcal and 80g protein, 1320 NCP. This provides 100% of energy and protein needs. Est Energy needs: 6557-6854 kcals (20-23 kcal/kgBW), Est Protein needs: 64-71 gms/day (1.0-1.1 gm/kgBW). Will continue to monitor and reassess prn. LABS: Creat 0.52L, Ca 7.3L, Alb 1.8L, Glu 189H GI: pt had 1 BM 08/04 and gastric residuals 100 ml 08/07 BS:skin score 15 mod risk PES: Problem Altered nutrition related lab values r.t current chronic medical condition aeb hyperglycemia, mild hypoalbuminemia Increased nutrient needs r.t current medical condition aeb pt`s NPO Comments 1) Continue to closely monitor pt NPO status. 2) Continue PN support to meet > 75% of needs. 3) Gradually advance pt to oral 2gNa diet when medically feasible and as tolerated. 4) Continue current plan of care 5) F/u 2-3 days
[2019-08-11 13:00] VITALS: BP 139/81
--- NOTE | 2019-08-11 16:21 | NUR ---
PHARMACY WAS CONTACTED FOR 3RD DOSE OF K TREMAINE, PHARMACY WILL FIX DOSE ADJUSTMENT ON PEXIS REPORTED, WILL CONTINUE MONITORING.
[2019-08-11] MEDS ORDERED: POTASSIUM CHL 20MEQ/100ML 100 ML IV SCH (16:30)
[2019-08-11 16:53] VITALS: BP 139/83
--- NOTE | 2019-08-11 18:43 | NUR ---
K TREMAINE IV PIGGY BAG X3 WAS COMPLETED ORDERED, PENDING POTASSIUM LEVEL ORDERED, D/C NGT ORDERED BY DR. GASCA AND TOLERATED WELL, RESTING ON BED, WILL CONTINUE MONITORING.
--- NOTE | 2019-08-11 18:45 | NUR ---
Respiratory note: AT BEDSIDE FOR MED AJ GONZALEZ.
--- NOTE | 2019-08-11 19:13 | NUR ---
REPORT WAS GIVEN TO THE AOC DIRECTOR COMBAT OPERATIONS OFFICER RN.
[2019-08-11] MEDS ORDERED: TPN PER PHARMACY IV NR ×11 (20:00)
--- NOTE | 2019-08-11 20:00 | NUR ---
Opening Shift Note Assumed care of patient, awake and alert, oriented x 4, follows direction. On room air with even and unlabored respirations, o2 sat 96%. Patient denies nausea and abd pain. Patient tolerates ice chips well. Patient denies passing gas at this time. patient reports burping. Noted hypoactive bowel sounds, abd soft and non-tender to touch. medial abd incision clean, dry, and intact. No S/S of distress/SOB. [place] intact and draining to gravity. Bed in lowest locked position with side rails up x 2 and call light within reach, bed alarm on. Instructed on POC and to call for assist PRN, will continue to monitor for changes Q1hr and PRN.
--- NOTE | 2019-08-11 20:50 | NUR ---
left IJ Dressing Change done with a sterile technique. Cleansed with chloraprep scrub. Stat lock, and bio-patch as available. Occlusive dressing applied. patient tolerated well.
--- NOTE | 2019-08-11 21:00 | NUR ---
Dressing change patient turned with minimal assistance, removed Optifoam to sacrum, cleansed sacrum with water and mild soap, noted pink pressure areas to intergluteal folds, applied barrier cream, and Optifoam. patient tolerated well. Cleansed groin and perineal area and applied antifungal to area. patient tolerated well.
[2019-08-11] MEDS: VANCOMYCIN 1GM/250ML 250 ML IV SCH (21:04)
[2019-08-11] MEDS: LORazepam 2MG/ML-1ML VIAL IV PRN (21:14)
[2019-08-11 21:53] VITALS: BP 141/80
[2019-08-12] MEDS: PIPERACILLIN-TAZOB 3.375GM 100 ML IV SCH ×4 (00:18→17:26)
[2019-08-12] MEDS: ACCU-CHEK COMFORT CURVE STRIP VI SCH ×4 (00:19→18:00)
[2019-08-12] MEDS: InsuLIN REG 1unit/0.01ml Soln (100units/ml) SC SCH ×4 (00:30→18:00)
[2019-08-12] MEDS: FAMOTIDINE (10MG/ML) 2ML VL IV SCH ×2 (01:18→12:37)
--- NOTE | 2019-08-12 01:29 | NUR ---
Respiratory note: PT REFUSED 0000 MED NEB TX. PT STATES SHE WOULD LIKE TO KEEP SLEEPING, PT AWARE I CAN BE PAGED AT ANY TIME SHE IS EXPERIENCING ANY CONCERN WITH HER BREATHING. .
[2019-08-12 05:00] VITALS: BP 149/74
--- NOTE | 2019-08-12 05:30 | NUR ---
Cooling Measures applied. Patient currently has temp of 99.8 , cooling measures in place. Patient refused ice packs at this time. Room temperature cooled and blankets removed.
[2019-08-12] MEDS: IPRATROPIUM BROM 0.5 MG/2.5ML INH SOL NEB SCH ×4 (06:33→19:02)
[2019-08-12] MEDS: ALBUTEROL SULF 2.5 MG/0.5ML(0.5%) NEB SOLN NEB SCH ×4 (06:33→19:01)
[2019-08-12 06:36] LABS: Potassium 3.3 mmol/L (3.5-5.1)
[2019-08-12 06:42] LABS: BUN/Creatinine Ratio 31.4; Bilirubin, Total 0.5 mg/dL (0.2-1.0); Calcium 7.5 mg/dL (8.5-10.1); Magnesium 2.1 mg/dL (1.6-2.6); Phosphorus 2.5 mg/dL (2.5-4.90); Total Protein 5.1 g/dL (6.4-8.2)
--- NOTE | 2019-08-12 07:00 | NUR ---
Closing note patient resting in bed with HOB elevated, on room air with even and unlabored respirations, no s/s of distress. Patient on specialty air mattress. Left IJ intact and patent infusing tpn per orders. [place] intact and draining to gravity. Bed in lowest locked position with side rails up x 2 and call light within reach. endorsed care to day shift RN.
--- NOTE | 2019-08-12 07:50 | NUR ---
RECEIVED PATIENT ALERT AND X4, NOT IN DISTRESS, DIMINISHED LUNG SOUNDS, RR=20 SAT=96%, COUGHING AND DEEP BREATHING WAS ENCOURAGED, DEMONSTRATED AND VERBALIZED UNDERSTANDING, DENIED CP AND SOB AT THIS MOMENT, HEART R=SR=80'S, KEEP NPO ORDERED, ABDOMEN SOFT WITH HYPOACTIVE BS, NO BM OR PASSING GAS NOTED, MID ABDOMINAL INCISION SURGICAL WOUND COVERED WITH DRY AND INTACT DRESSING, VILLEDA CATH IN PLACE AND PATENT, DRAINING YELLOW CLOUDY URINE, SACRUM COVERED WITH DRY AND INTACT OPTI FOAM DRESSING, GENERAL SKIN INTACT WARM TO TOUCH, RADIAL AND PEDAL PULSES PALPABLE, ON AIR MATTRESS, RESTING ON BED, HEAD OF BED ELEVATED, BED ON LOW POSITION, RAILS UP X2, CALL LIGHT ON REACH, POTASSIUM L=3.3 THIS MORNING, PENDING GASTROGRAM ORDERED, WILL CONTINUE MONITORING.
[2019-08-12 09:00] VITALS: BP 151/74
--- NOTE | 2019-08-12 09:55 | NUR ---
6 V TACH NOTED ON TELE MONITOR REPORTED BY MEDICAL ASSISTANT OB GYN, PATIENT WAS ASSESSED NOT IN DISTRESS, DENIED CHEST PAIN OR DISCOMFORT AND DENIED SOB, RESTING ON BED, SPUDDER WAS CALLED TO BE NOTIFIED, WAITING FOR CALL BACK, WILL CINTINUE MONITORING.
[2019-08-12] MEDS: FLUCONAZOLE 200MG/100ML 100 ML IV SCH ×2 (10:00→11:58)
[2019-08-12] MEDS ORDERED: GASTROGRAFIN 120 ML SOL ONE ×2 (10:05→11:50)
[2019-08-12] MEDS ORDERED: POTASSIUM CHL 20MEQ/100ML 100 ML IV ONE (10:30)
--- NOTE | 2019-08-12 10:30 | NUR ---
WENT ON BED TO [facility], WILL CONTINUE MONITORING.
[2019-08-12 11:14] LABS: Hematocrit 35.2 % (36.0-46.0); Mean Corpuscular Hemoglobin 30.9 pg (28.0-32.0); Mean Corpuscular Volume 90.8 fL (80.0-100.0); Platelet Count (auto) 194 10^3/uL (140-450); Red Blood Cells 3.87 10^6/uL (4.0-5.20); Red Cell Distribution Width 13.6 % (11.8-14.3); White Blood Cell 10.6 10^3/uL (4.4-10.8)
[2019-08-12 11:26] LABS: Basophils % (manual) 0 (0.0-2.0); Blast Cells 0; Metamyelocytes % 0; Myelocytes % 0; Promyelocytes % 0; Reactive Lymphocytes 0
[2019-08-12 11:51] LABS: Band Neutrophils % (manual) 1; Eosinophils % (manual) 2 (0-7); Lymphocytes % (manual) 16 (10.0-50.0); Monocytes % (manual) 10 (0-12)
[2019-08-12 13:00] VITALS: BP 131/64
[2019-08-12] MEDS: POTASSIUM CHL 20MEQ/100ML 100 ML IV SCH ×2 (13:15→13:30)
[2019-08-12 16:45] VITALS: BP 156/70
--- NOTE | 2019-08-12 18:51 | NUR ---
LARGE SOFT DARK COLORED BM X2 NOTED, PENDING CLEAR LIQUID ORDERED, DIETARY CONTACTED FOR DINNER TRAY FOLLOW UP, RESTING ON BED, NOT IN DISTRESS, DENIED PAIN, WILL CONTINUE MONITORING.
--- NOTE | 2019-08-12 19:12 | NUR ---
REPORT WAS GIVEN TO THE FILTER PLANT SUPERVISOR RN.
[2019-08-12 19:42] VITALS: BP 156/70
--- NOTE | 2019-08-12 19:50 | NUR ---
Opening Shift Note Assumed care of patient, awake and alert, oriented x 4, follows direction. On oxygen at 2L via NC with even and unlabored respirations. Patient denies nausea and abd pain. Patient tolerates ice chips well. Noted hypoactive bowel sounds, abd soft and non-tender to touch. medial abd incision clean, dry, and intact. No S/S of distress/SOB. [place] intact and draining to gravity. Bed in lowest locked position with side rails up x 2 and call light within reach, bed alarm on. Instructed on POC and to call for assist PRN, will continue to monitor for changes Q1hr and PRN.
[2019-08-12] MEDS ORDERED: TPN PER PHARMACY IV NR ×10 (20:00)
--- NOTE | 2019-08-12 20:05 | NUR ---
Dr. Lobo at bedside updated MD on patient status for positive bowel movement today. per Dr. Lobo, darian bhatia in A.M., advance diet as tolerated, taper TPN then DC, patient to work with physical therapy, ok to dc home from surgical standpoint.
[2019-08-12] MEDS: LORazepam 2MG/ML-1ML VIAL IV PRN (20:28)
[2019-08-12] MEDS: VANCOMYCIN 1GM/250ML 250 ML IV SCH (20:51)
[2019-08-12] MEDS: hydrALAZINE HCL 20 MG/ML VL IV PRN (21:28)
[2019-08-12 21:46] VITALS: BP 154/76
[2019-08-12] MEDS: HYDROmorphone HCL 2 MG/ML VL IV PRN (22:21)
[2019-08-13] VITALS (7 sets, daily range): BP systolic 113–153; BP diastolic 74–88
[2019-08-13] MEDS: PIPERACILLIN-TAZOB 3.375GM 100 ML IV SCH ×4 (00:37→18:06)
[2019-08-13] MEDS: ACCU-CHEK COMFORT CURVE STRIP VI SCH ×4 (00:37→17:21)
[2019-08-13] MEDS: InsuLIN REG 1unit/0.01ml Soln (100units/ml) SC SCH ×4 (00:39→18:00)
[2019-08-13] MEDS: FAMOTIDINE (10MG/ML) 2ML VL IV SCH ×2 (00:39→13:45)
[2019-08-13] MEDS: ALBUTEROL SULF 2.5 MG/0.5ML(0.5%) NEB SOLN NEB SCH ×4 (00:44→18:48)
[2019-08-13] MEDS: IPRATROPIUM BROM 0.5 MG/2.5ML INH SOL NEB SCH ×4 (00:44→18:48)
--- NOTE | 2019-08-13 00:44 | NUR ---
Respiratory note: AT BEDSIDE FOR MED NEB TX, PT SLEEPING. NO RESPIRATORY DISTRESS NOTED. WILL CONTINUE TO MONITOR.
--- NOTE | 2019-08-13 06:47 | NUR ---
Closing note patient resting in bed, on oxygen at 2L via NC with even and unlabored respirations, no s/s of distress. Patient tolerated apple juice well without nausea or abd pain. Patient on specialty air mattress. Left IJ intact and patent. Medial abd incision CDI. Bed in lowest locked position with side rails up x 2 and call light within reach.
[2019-08-13 07:19] LABS: Calcium 7.3 mg/dL (8.5-10.1); Magnesium 2.1 mg/dL (1.6-2.6); Potassium 3.6 mmol/L (3.5-5.1)
[2019-08-13 07:23] LABS: BUN/Creatinine Ratio 28.8; Bilirubin, Total 0.5 mg/dL (0.2-1.0); Total Protein 5.5 g/dL (6.4-8.2)
[2019-08-13 07:29] LABS: Pre Albumin 10.9 mg/dL (20.0-40.0)
--- NOTE | 2019-08-13 07:35 | NUR ---
Opening Shift Note Assumed care of patient, awake and alert. No S/S of distress/SOB or pain reported at this time, mid abd dressing cdi. Instructed on POC and to call for assist PRN, call light within reach, bhatia patent and draining via gravity, skin assessed to sacrum, skin to inner thigh red and irritated form incontinent loose bowel movement, sacrum skin thin and flaky, pt able to demonstrate how to call for assist, tipple lumen to left neck, patent and benign, bed alarm on, will continue to monitor for changes Q1hr and PRN.
--- NOTE | 2019-08-13 08:45 | NUR ---
DR GASCA AT BEDSIDE ORDERED TO TAPER TPN, DC VILLEDA AND ADVANCE DIET TOLERATED, CONT CARE
--- NOTE | 2019-08-13 10:19 | NUR ---
MD DR RODRÍGUEZ AT BEDSIDE, DISCUSSING POC WITH PT, PT AOXOX4, NO DISTRESS NOTED, CONT CARE
--- NOTE | 2019-08-13 10:29 | NUR ---
Nutrition Followup Notes WT: 72.7 kg, pt wt between 70-73.7 kg x1 week, 60kg wt likely an error Pt reports diarrhea 08/12. Pt transitioning back to PO, current diet order is Clear liquids. PO of 25% 08/12 per RN doc. Pt expressed desire to DC home with home health aides. TPN ordered at 77ml/hr which provides 1950 kcal and 90g protein, 1590 NCP. This provides >100% of energy and protein needs. TPN running at 20 ml/hr. Est Energy needs: 5306-7906 kcals (25-28 kcal/kgBW), Est Protein needs: 72-80 gms/day (1.0-1.1 gm/kgBW). Will continue to monitor and reassess prn. LABS: Creat 0.52L, Ca 7.3L, Alb 2.0L, Glu 137H GI: RN doc reports 8 BM 08/12 r/t diarrhea BS:skin score 14 mod risk, incision, medial sac ulcer per pc technician doc, full detail available PES: Problem Altered nutrition related lab values r.t current chronic medical condition aeb hyperglycemia, mild hypoalbuminemia Increased nutrient needs r.t current medical condition aeb pt`s NPO Comments 1) Continue to closely monitor pt NPO status. 2) Continue PN support to meet > 75% of needs. 3) Gradually advance pt to oral 2gNa diet when medically feasible and as tolerated. 4) Continue current plan of care 5) F/u 2-3 days
--- NOTE | 2019-08-13 10:30 | NUR ---
Bhatia catheter dc'd Order to discontinue bhatia catheter. Bhatia dc'd with clean technique following deflation of balloon. Patient tolerated well with no complaints of pain. Continue care.
[2019-08-13] MEDS: FLUCONAZOLE 200MG/100ML 100 ML IV SCH ×2 (10:38→12:49)
--- NOTE | 2019-08-13 11:48 | NUR ---
Pt was not able to get out of bed today due to constant bouts of diarrhea. Pt worked on exercises while lying in supine position. Pt did have c/o moderate pain to abdominal area, mostly L side. Pt was able to complete x 10 reps of gluteal squeezes, quad sets, heel slides and hip abd/add. Addendum: 08/13/19 at 1151 by Deidra Gutierrez PT Amended: Links added.
--- NOTE | 2019-08-13 14:30 | NUR ---
BED BATH PT CLEANSED, BARRIER OINTMENT APPLIED TO INNER THIGH AND SACRUM, PT REPOSITIONED, PULLED UP IN BED, BED ALARM ON AND CALL LIGHT WITHIN REACH, CONT CARE
--- NOTE | 2019-08-13 18:30 | NUR ---
PT TOLERATED DINNER WILL ADVANCE TOLERATED ORDERED Addendum: 08/13/19 at 1941 by Liseth Underwood RN NO C/O N/V
[2019-08-13] MEDS: HYDROmorphone HCL 2 MG/ML VL IV PRN (19:01)
--- NOTE | 2019-08-13 20:15 | NUR ---
Opening Shift Note Assumed care of patient, awake and alert. No S/S of distress/SOB or pain. Patient is on 2 liters of oxygen via nasal cannula. Instructed on POC and to call for assist PRN, will continue to monitor for changes Q1hr and PRN.
[2019-08-13] MEDS: VANCOMYCIN 1GM/250ML 250 ML IV SCH (20:58)
[2019-08-14] VITALS (7 sets, daily range): BP systolic 128–161; BP diastolic 69–90
[2019-08-14] MEDS: PIPERACILLIN-TAZOB 3.375GM 100 ML IV SCH ×4 (00:26→18:16)
[2019-08-14] MEDS: ACCU-CHEK COMFORT CURVE STRIP VI SCH ×4 (00:45→18:04)
[2019-08-14] MEDS: InsuLIN REG 1unit/0.01ml Soln (100units/ml) SC SCH ×6 (00:45→18:00)
[2019-08-14] MEDS: FAMOTIDINE (10MG/ML) 2ML VL IV SCH ×2 (00:46→14:42)
--- NOTE | 2019-08-14 01:00 | NUR ---
Antifungal cream applied to groin/perineal area per MD order.
[2019-08-14] MEDS: ALBUTEROL SULF 2.5 MG/0.5ML(0.5%) NEB SOLN NEB SCH ×5 (02:01→19:25)
[2019-08-14] MEDS: IPRATROPIUM BROM 0.5 MG/2.5ML INH SOL NEB SCH ×4 (02:01→19:21)
[2019-08-14] MEDS: HYDROmorphone HCL 2 MG/ML VL IV PRN ×2 (02:29→08:48)
--- NOTE | 2019-08-14 02:29 | NUR ---
Patient medicated with Dilaudid 0.5 mg IV for 10/ headache due to patient not having PRN medication available for severe pain and per patient statement Dilaudid works for her pain. Will continue to monitor.
--- NOTE | 2019-08-14 02:59 | NUR ---
Patient has no complaints of pain at this time.
[2019-08-14] MEDS: hydrALAZINE HCL 20 MG/ML VL IV PRN (05:52)
--- NOTE | 2019-08-14 05:52 | NUR ---
PRN dose of Apresoline 10 mg IV was given for BP of 161/69.
--- NOTE | 2019-08-14 07:00 | NUR ---
CLOSING NOTE No S/S of distress/SOB or pain. Patient is on 2 liters of oxygen via nasal cannula. Patient is on specialty mattress. Bed alarm is on. Endorsed to day shift RN PRN dose of Apresoline 10 mg IV was given for BP of 161/69 at 0552 08/14/19.
--- NOTE | 2019-08-14 07:30 | NUR ---
Opening Shift Note Assumed care of patient, awake and alert. No S/S of distress/SOB or pain. Instructed on POC and to call for assist PRN, will continue to monitor for changes Q1hr and PRN.
[2019-08-14] MEDS: FLUCONAZOLE 200MG/100ML 100 ML IV SCH ×2 (10:07→11:12)
[2019-08-14] MEDS: ACETAMINOPHEN 325 MG TAB PO PRN (18:06)
--- NOTE | 2019-08-14 18:25 | NUR ---
patient fall. had to guide patient to floor after ambulating because she got dizzy and lost strength in her legs. charge and doctor notified of the fall.
--- NOTE | 2019-08-14 19:26 | NUR ---
RT NOTE PT CR ELEVATED. PT DENIES ANY DISTRESS. NO SIGNS OF DISTRESS NOTED BY RT. ALBUTEROL HELD DUE TO CR, ATROVENT GIVEN.
--- NOTE | 2019-08-14 19:35 | NUR ---
Opening shift note Assumed care of patient. Pt educated about POC. No signs of distress. Bed wheels locked, side rails up. Call light within reach.
--- NOTE | 2019-08-14 21:29 | NUR ---
Paged Dr. Nicholson regarding nurse report saying possible IJ removal. Pt asked about it. Per Dr. Nicholson, keep IJ in for now to maintain IV access. Notified MD also about how pt does not want to get poked from accucheck at midnight (order says q6hrs BS check). Per MD take blood from IJ for BS check.
--- NOTE | 2019-08-14 22:15 | NUR ---
Pt reported 7/10 pain, refused dilaudid, requested tylenol, not due yet. Pt reported she will wait till tylenol due. BP elevated 152/76, rechecked wnl (134/71). Will continue to monitor and administer tylenol when due.
[2019-08-15] MEDS: FAMOTIDINE (10MG/ML) 2ML VL IV SCH ×2 (03:03→15:18)
[2019-08-15 05:00] VITALS: BP 137/71
[2019-08-15] MEDS: ACCU-CHEK COMFORT CURVE STRIP VI SCH ×4 (06:00→18:00)
[2019-08-15] MEDS: InsuLIN REG 1unit/0.01ml Soln (100units/ml) SC SCH ×4 (06:00→18:00)
[2019-08-15] MEDS: IPRATROPIUM BROM 0.5 MG/2.5ML INH SOL NEB SCH ×4 (06:20→19:22)
[2019-08-15] MEDS: ALBUTEROL SULF 2.5 MG/0.5ML(0.5%) NEB SOLN NEB SCH ×4 (06:20→19:22)
[2019-08-15] MEDS: ACETAMINOPHEN 325 MG TAB PO PRN ×3 (06:38→22:01)
--- NOTE | 2019-08-15 07:30 | NUR ---
Opening Shift Note Assumed care of patient, awake and alert. No S/S of distress/SOB or pain. Instructed on POC and to call for assist PRN, will continue to monitor for changes Q1hr and PRN. Sitter at bedside.
[2019-08-15 09:00] VITALS: BP 104/62
--- NOTE | 2019-08-15 11:15 | NUR ---
Received call from [employer]: patient had a short run of A-fib with RVR. Patient asymptomatic. Dr. Rafita Banda informed.
[2019-08-15 13:00] VITALS: BP 122/82
--- NOTE | 2019-08-15 15:13 | NUR ---
Triple lumen IV access left IJ flushed, good blood return. New dressing to site.
[2019-08-15 17:00] VITALS: BP 140/60
[2019-08-15 20:30] VITALS: BP 140/60
[2019-08-15 20:37] VITALS: BP 148/77
[2019-08-16] VITALS (7 sets, daily range): BP systolic 131–159; BP diastolic 66–81
--- NOTE | 2019-08-16 00:03 | NUR ---
Respiratory note: AT BEDSIDE FOR SCHEDULED MED NEB TX. PT REFUSED MED NEB TX AT THIS TIME. PT PRESENTING NO RESPIRATORY DISTRESS, SITTER AT BEDSIDE. WILL CONTINUE TO MONITOR.
[2019-08-16] MEDS: ACCU-CHEK COMFORT CURVE STRIP VI SCH ×4 (00:24→18:00)
[2019-08-16] MEDS: FAMOTIDINE (10MG/ML) 2ML VL IV SCH ×2 (02:59→14:17)
[2019-08-16] MEDS: hydrALAZINE HCL 20 MG/ML VL IV PRN (03:31)
[2019-08-16] MEDS: ACETAMINOPHEN 325 MG TAB PO PRN ×3 (04:14→22:05)
--- NOTE | 2019-08-16 04:38 | NUR ---
Pain and elevated BP Pt's BP still elevated after hydralazine given. Tylenol given for pain. Will reassess BP with pain reassessment.
[2019-08-16] MEDS: IPRATROPIUM BROM 0.5 MG/2.5ML INH SOL NEB SCH ×5 (05:33→23:59)
[2019-08-16] MEDS: ALBUTEROL SULF 2.5 MG/0.5ML(0.5%) NEB SOLN NEB SCH ×5 (05:33→23:59)
[2019-08-16] MEDS: InsuLIN REG 1unit/0.01ml Soln (100units/ml) SC SCH ×4 (06:00→18:00)
[2019-08-16] MEDS: LABETALOL HCL 5 MG/ML 4ML SYRINGE IV PRN ×2 (06:37→17:16)
--- NOTE | 2019-08-16 12:17 | NUR ---
Nutrition Followup Notes WT: 70.4 kg Pt diet transitioning to po. Pt on soft diet. Pt reports eating and having an appetite. Po intake average of 75%x 2 days per RN doc. Pt reports diarrhea when eating, waiting MD orders r/t to diarrhea Est Energy needs: 1373-8991 kcals (25-28 kcal/kgBW), Est Protein needs: 72-80 gms/day (1.0-1.1 gm/kgBW). Will continue to monitor and reassess prn. LABS: Creat 0.52L, Ca 7.3L, Alb 2.0L, Glu 133H GI: RN doc reports 4 BM 08/15 r/t diarrhea BS:skin score 15 mod risk, incision, medial sac ulcer per metal forger's assistant doc, full detail available PES: Problem Altered nutrition related lab values r.t current chronic medical condition aeb hyperglycemia, mild hypoalbuminemia Resolved, pt diet po: Increased nutrient needs r.t current medical condition aeb pt`s NPO Comments 1) Continue to monitor po intake, skin, labs 2) Pt to consume >75% of po intake 3) Continue current plan of care 4) F/u 3-5 days
--- NOTE | 2019-08-16 16:00 | NUR ---
Patient C/O surgical pain 10/01 but states she wants only Tylenol for the pain. Medicated.
--- NOTE | 2019-08-16 17:18 | NUR ---
Labetolol 10 mg IV given for B/P 159/72, HR 80. Will continue to monitor.
--- NOTE | 2019-08-16 19:20 | NUR ---
Opening note Patient laying in bed w/ HOB at 30 degrees. Sitter at bedside. No signs or distress or SOB. Patient safety precautions in place w/ bed in lowest position and and side rails up x2. Discussed POC w/ patient, patient verbalized understanding. Will continue to monitor.
--- NOTE | 2019-08-16 22:05 | NUR ---
Patient Complains of Headache Patient requested medication for headache. Pain medication given as prescribed. Will continue to monitor.
--- NOTE | 2019-08-17 | NUR ---
Respiratory note: EARLIER PT REQUESTED NOT TO BE WOKEN UP FOR MED NEB TX. PT SLEEPING AT THIS TIME, NO RESPIRATORY DISTRESS NOTED. WILL CONTINUE TO MONITOR.
[2019-08-17] MEDS: ACCU-CHEK COMFORT CURVE STRIP VI SCH ×3 (00:14→11:38)
[2019-08-17] MEDS: FAMOTIDINE (10MG/ML) 2ML VL IV SCH (01:41)
[2019-08-17 04:35] VITALS: BP 142/72
[2019-08-17] MEDS: InsuLIN REG 1unit/0.01ml Soln (100units/ml) SC SCH ×3 (06:00→11:39)
[2019-08-17] MEDS: IPRATROPIUM BROM 0.5 MG/2.5ML INH SOL NEB SCH ×2 (06:15→11:43)
[2019-08-17] MEDS: ALBUTEROL SULF 2.5 MG/0.5ML(0.5%) NEB SOLN NEB SCH ×2 (06:15→11:44)
[2019-08-17 09:00] VITALS: BP 160/78
--- NOTE | 2019-08-17 10:18 | NUR ---
second miller s.ebenezer paged by tank charger rhonda
--- NOTE | 2019-08-17 11:11 | NUR ---
WOUND CARE NOTE: WOUND CARE IN TO SEE PATIENT FOR REASSESSMENT OF SKIN INTEGRITY ISSUES. PATIENT CURRENT WONG SCORE IS 12. PATIENT HAD MASD WITH SKIN EROSION TO THE SACRUM AND INTERTRIGINOUS RASH TO GROIN AND PERINEAL AREA. NEW PHOTOGRAPHS TAKEN FOR REFERENCE. BOTH SKIN INTEGRITY ISSUES HAVE RESOLVED. ZGUARD AND OPTIFOAM GENTLE SACRAL DRESSING APPLIED TO SACRUM PREVENTATIVE. NO TOHER SKIN INTEGRITY ISSUES NOTED. RECOMMEND: CONTINUE WITH ALL PREVIOUS SKIN/WOUND CARE ORDERS ORDERED BY HOSPITALIST. SKIN/WOUND CARE PLAN. CONTINUED MONITORING BY WOUND CARE TEAM. Addendum: 08/17/19 at 1350 by MORRIS LOCO RN RN Amended: Links added.
--- NOTE | 2019-08-17 13:41 | NUR ---
RE-PAGED S.S. SEAT COVERER
--- NOTE | 2019-08-17 14:10 | NUR ---
FAXED [phone] [facility] H&P, FACE SHEET AND DR GALLARDO. CONFIRMED FAX WITH LUANN AT [facility] WAS RECEIVED [phone]
--- NOTE | 2019-08-17 15:15 | NUR ---
Discharge instructions given as ordered. Encourage to follow up with PMD as instructed. All questions and concerns addressed. Patient verbalized understanding. Midline to left upper neck removed with catheter intact, pressure dressing applied; picture taken of site. Wound care photos taken by Chuck child day care teacher. Telemetry unit returned to ICU. Patient taken to vehicle via wheelchair with all personal belongings, accompanied by staff and family member. No distress noted at time of departure.
== END 2019-08-17 15:15 | disposition home health service (06) | DRG 853 ==
LOC: ER 10:33 → TELE 10:34 → TELE-CENTR 18:05 → ICU WEST 08-05 14:25 → TELE-WESTW 08-09 20:27
PROVIDERS: ADMIT Internal Medicine; ATTEND Family Medicine
PROC: 0D9670Z Drainage of Stomach with Drainage Device, Via Natural or Artificial Opening (ICD-10-PCS; 2019-07-31)
PROC: 5A1945Z Respiratory Ventilation, 24-96 Consecutive Hours (ICD-10-PCS; 2019-08-05)
PROC: 0WJP4ZZ Inspection of Gastrointestinal Tract, Percutaneous Endoscopic Approach (ICD-10-PCS; 2019-08-05)
PROC: 0BH17EZ Insertion of Endotracheal Airway into Trachea, Via Natural or Artificial Opening (ICD-10-PCS; 2019-08-05)
PROC: 0DN80ZZ Release Small Intestine, Open Approach (ICD-10-PCS; principal; 2019-08-05 12:56)
PROC: 02HV33Z Insertion of Infusion Device into Superior Vena Cava, Percutaneous Approach (ICD-10-PCS; 2019-08-06)
PROC: B548ZZA Ultrasonography of Superior Vena Cava, Guidance (ICD-10-PCS; 2019-08-06)
PROC: 5A1935Z Respiratory Ventilation, Less than 24 Consecutive Hours (ICD-10-PCS; 2019-08-08)
PROC: 0BH17EZ Insertion of Endotracheal Airway into Trachea, Via Natural or Artificial Opening (ICD-10-PCS; 2019-08-08)
DX: A41.9 Sepsis, unspecified organism (principal); J96.21 Acute and chronic respiratory failure with hypoxia; E87.1 Hypo-osmolality and hyponatremia; J44.1 Chronic obstructive pulmonary disease with (acute) exacerbation; J98.11 Atelectasis; K56.51 Intestinal adhesions [bands], with partial obstruction; Z99.11 Dependence on respirator [ventilator] status; F17.210 Nicotine dependence, cigarettes, uncomplicated; D75.1 Secondary polycythemia; E87.6 Hypokalemia; I10 Essential (primary) hypertension; K57.30 Diverticulosis of large intestine without perforation or abscess without bleeding; Z74.01 Bed confinement status; Z99.81 Dependence on supplemental oxygen; Z83.3 Family history of diabetes mellitus; Z82.49 Family history of ischemic heart disease and other diseases of the circulatory system; Z90.49 Acquired absence of other specified parts of digestive tract; Z90.710 Acquired absence of both cervix and uterus; Z65.2 Problems related to release from prison
CPT/HCPCS: 36415; 36600; 71045; 74018; 74176; 74250; 80053; 80202; 80307; 81001; 82040; 82150; 82805; 82962; 83036; 83605; 83690; 83735; 84100; 84132; 84478; 84484; 85007; 85025; 85027; 85610; 85652; 85730; 86141; 86850; 86900; 86901; 87040; 87070; 87081; 87086; 87205; 87493; 93005; 93306; 93886; 94002; 94003; 94640; 96365; 96367; 96375; 97110; 97163; 97530; G0378; J0690; J0696; J1450; J1815; J2250; J2405; J2543; J2704; J3480; J3490; J7060